=== PATIENT | female | born 1990 | race Caucasian/White ===

== ENCOUNTER 2020-06-23 01:37 | Inpatient (IN) ==
[2020-06-23] MEDS ORDERED: fentaNYL citrate 100 MCG/2 ML VIAL IV STA (01:41)
[2020-06-23] MEDS ORDERED: ONDANSETRON INJ 2 MG/ML 2 ML VIAL IV STA (01:41)
[2020-06-23] MEDS ORDERED: SODIUM CHLORIDE 0.9% 1000ML 1,000 ML IV SCH (01:45)
[2020-06-23] MEDS ORDERED: ONDANSETRON INJ 2 MG/ML 2 ML VIAL ONE (01:58)
[2020-06-23 01:59] LABS: Appearance Urine Clear (Clear); Bilirubin Urine Negative (Negative); Blood Urine Negative (Negative); Color Urine Yellow; Glucose Urine UA Negative (Negative); Ketones Urine Trace (Negative); Leukocyte Esterase Urine Negative (Negative); Nitrite Urine Negative (Negative); Protein Urine Negative (Negative); Urobilinogen Urine Negative (Negative); pH Urine 6.5 (4.5-7.5)
[2020-06-23] MEDS ORDERED: MoRPHine SULFATE 10 MG/ML CARP/VIAL ONE (02:01)
[2020-06-23] MEDS ORDERED: LORazepam 2 MG/4 ML VIAL IV STA (02:11)
[2020-06-23 02:13] LABS: Hematocrit (blood only) 41.8 % (37-47); Hemoglobin 13.8 g/dL (12.0-16.0); Mean Corpuscular Hemoglobin 28.8 pg (25-34); Mean Corpuscular Volume 87.3 fL (80-100); Mean Platelet Volume 11.6 fL (7.4-10.4); Platelet Count 286 K/uL (130-400); RDW Coefficient of Variation 13.7 % (11.5-14.5); RDW Standard Deviation 43.6 fL (36.4-46.3); Red Blood Count 4.79 M/uL (4.2-5.4); White Blood Count 26.69 K/uL (4.8-10.8)
[2020-06-23 02:26] LABS: INR 1.1 (0.9-1.1); Partial Thromboplastin Time 27.6 Seconds (21.0-31.0); Prothrombin Time 11.5 Seconds (9.0-12.0)
[2020-06-23 02:27] LABS: Pregnancy Test, Serum Negative (Negative)
[2020-06-23 02:31] LABS: BUN Creatinine Ratio 11.6 (10-20); Creatinine Clr Calc Pharmacy 114.4 ml/min; Est GFR (African American) 116.4; Est GFR (Non-African American) 100.5; Potassium 3.7 mmol/L (3.5-5.1)
[2020-06-23 02:34] LABS: Albumin Globulin Ratio 1.1 (0.9-2); Bilirubin,Total 0.3 mg/dl (0.2-1); Globulin 3.7 gm/dl (2.5-4.0); Total Protein 7.7 gm/dl (6.4-8.2)
[2020-06-23 02:47] LABS: Basophils # (auto) 0.02 K/uL (0-0.2); Basophils % (auto) 0.1 %; Eosinophils # (auto) 0.02 K/uL (0-0.5); Eosinophils % (auto) 0.1 %; Immature Granulocytes # (auto) 0.12 K/uL (0.00-0.02); Immature Granulocytes % (auto) 0.4 %; Lymphocytes # (auto) 2.07 K/uL (1.2-3.4); Lymphocytes % (auto) 7.8 %; Monocytes # (auto) 1.17 K/uL (0.11-0.59); Monocytes % (auto) 4.4 %; Neutrophils # (auto) 23.29 K/uL (1.4-6.5); Neutrophils % (auto) 87.2 %; RBC Morphology Unremarkable
[2020-06-23] MEDS ORDERED: HYDROmorphone INJ 0.5 MG/0.5 ML SYR IV STA (02:59)
[2020-06-23] MEDS ORDERED: KETOROLAC 30 MG/ML VIAL IV STA (04:28)
[2020-06-23] MEDS ORDERED: GENTAMICIN CONSULT ACTIVE PRN (05:28)
[2020-06-23] MEDS ORDERED: GENTAMICIN SULFATE 40 MG/ML 2 ML VIAL IV ONE (05:28)
[2020-06-23] MEDS ORDERED: CLINDAMYCIN 900 MG in DEXTROSE 5% 50 ML IV ONE (05:28)
[2020-06-23] MEDS ORDERED: GENTAMICIN SULFATE 300 MG in DEXTROSE 5% 100 ML IV STA (05:45)
[2020-06-23] MEDS ORDERED: MAGNESIUM HYDROXIDE SUSP 30 ML UDC PO PRN (06:10)
[2020-06-23] MEDS ORDERED: ACETAMINOPHEN 325 MG TAB PO PRN (06:10)
[2020-06-23] MEDS ORDERED: ALUMINUM/MAGNESIUM/SIMETH (MAALOX MAX) 30 ML UDC PO PRN (06:10)
[2020-06-23] MEDS ORDERED: POLYETHYLENE (MIRALAX) 17 GM PACK PO PRN (06:10)
--- NOTE | 2020-06-23 06:10 | OB/GYN Consultation ---
Date of Consultation June 23, 2020 Assessment & Plan (1) Endometriosis: (2) Pelvic pain: 30-year-old G0 female with acute onset severe pelvic pain radiating to abdominal pain, history of endometriosis, menorrhagia, dysmenorrhea Elevated white blood cell count Physical exam with cervical motion tenderness uterine and adnexal tenderness Ultrasound suggesting hemorrhagic ovarian cyst versus endometrioma and hydrosalpinx Clinical findings and ultrasound suggesting PID Plan to admit, monitor, IV antibiotics and pain management and reevaluate for possible surgical consultation. All questions were answered. (3) Abdominal pain: (4) Cervical motion tenderness: History of Present Illness History of Present Illness Patient is a 30-year-old G0 female who presented to ER with acute pelvic/abdominal pain started around 11 PM. She was at work and sitting and then she stood up and felt sudden sharp lower abdominal/pelvic pain which she stated was around pubic bone. It got worse and spread to whole abdomen and has been constant and severe since then. It is worse when she moves or ambulates and she required IV pain medications with minimal relief in ER and pain is coming back. Patient was feeling well before 11:00. Patient denies fever, chills, nausea or vomiting, chest pain shortness of breath, problems with bowels nor urination. Last bowel movement was yesterday and it was normal. Patient denies vaginal bleeding, discharge or smell. Her [employer] history is significant for history of endometriosis, removed endometrioma from one of the ovaries and was told that it was severe endometriosis. 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 Next period is due next period. She had Lexie IUD which helped with her periods. But removed 2 years ago to attempt for . She has been attempting for with her for the last 2 years with no success. No h/o STD's. No h/o bowel disease. Last meal was at 8 pm last night with no N&V Allergies Allergy/AdvReac Type Severity Reaction Status Date / Time No Known Allergies Allergy Verified 06/23/20 02:23 Home Medications Medication Instructions Recorded Confirmed Type ascorbic acid (vitamin C) [Vitamin 0 mg PO DAILY 06/23/20 06/23/20 History C] cholecalciferol (vitamin D3) 0 mcg PO DAILY 06/23/20 06/23/20 History [Vitamin D3] Patient History Medical History (Updated 06/23/20 @ 06:08 by Antonietta Gomez MD) Abdominal pain Social History Smoking Status: Never smoker Feels Safe at Home: Yes Review of Systems Review of Systems: All systems reviewed & are unremarkable except as noted in HPI & below Physical Exam Constitutional: WD/WN, vitals as above well developed, well nourished and + acute distress (severe apin in lower abdomen/ pelvis, holdiing with her hands) Gastrointestinal (Abdomen): Inspection/Auscultation: abdomen normal to inspection Percussion/Palpation: + abdomen tender and + guarding (lower abdomen) Genitourinary: no vaginal lesions, no adnexal mass normal external appearance Speculum/Bimanual Exam: normal appearance of the vagina, normal ap pearance of the cervix, + cervical tenderness, + cervical motion tenderness (cultures were taken), + uterus tender and + adnexae not mobile Results & Data (MN) Vital Signs (Past 12 Hours) Vital Signs Temp Pulse Resp BP Pulse Ox 06/23/20 04:30 126 H 15 110/82 97 06/23/20 04:25 135 H 18 125/87 98 06/23/20 03:30 115 H 17 112/73 98 06/23/20 03:15 116 H 19 129/76 99 06/23/20 03:00 117 H 17 132/68 98 06/23/20 02:45 112 H 17 124/78 96 06/23/20 02:33 121 H 19 124/78 97 06/23/20 02:32 119 H 18 06/23/20 02:20 123 H 15 95 06/23/20 02:18 120 H 16 142/96 H 96 06/23/20 02:10 123 H 26 H 98 06/23/20 02:00 37.2 C 116 H 29 H 125/102 H 99 06/23/20 01:52 133 H 33 H 125/102 H 92 06/23/20 01:50 127 H 21 97 Laboratory Results Lab Results 06/23/20 06/23/20 06/23/20 Range/Units 01:50 01:50 02:00 WBC (4.8-10.8) K/uL RBC (4.2-5.4) M/uL Hgb (12.0-16.0) g/dL Hct (37-47) % MCV (80-100) fL MCH (25-34) pg MCHC (32-36) g/dL RDW Std Deviation (36.4-46.3) fL RDW Coeff of Sachi (11.5-14.5) % Plt Count (130-400) K/uL MPV (7.4-10.4) fL Immature Gran % (Auto) % Neut % (Auto) % Lymph % (Auto) % [place] % (Auto) % Eos % (Auto) % Baso % (Auto) % Neut # (Auto) (1.4-6.5) K/uL Lymph # (Auto) (1.2-3.4) K/uL [place] # (Auto) (0.11-0.59) K/uL Eos # (Auto) (0-0.5) K/uL Baso # (Auto) (0-0.2) K/uL Immature Gran # (Auto) (0.00-0.02) K/uL RBC Morphology PT (9.0-12.0) Seconds INR (0.9-1.1) APTT (21.0-31.0) Seconds PTT Ratio Sodium (136-145) mmol/L Potassium (3.5-5.1) mmol/L Chloride (98-107) mmol/L Carbon Dioxide (21-32) mmol/L Anion Gap (3-11) BUN (7-18) mg/dl Creatinine (0.6-1.2) mg/dl Est Cr Clr Drug Dosing ml/min Est GFR ( Amer) Est GFR (Non-Af Amer) BUN/Creatinine Ratio (10-20) Glucose (70-99) mg/dl Calcium (8.5-10.1) mg/dl Total Bilirubin (0.2-1) mg/dl AST (15-37) U/L ALT (12-78) U/L Alkaline Phosphatase (45-117) U/L Total Protein (6.4-8.2) gm/dl Albumin (3.4-5.0) gm/dl Globulin (2.5-4.0) gm/dl Albumin/Globulin Ratio (0.9-2) Lipase (73-393) U/L HCG, Qual (Negative) Urine Color Yellow Urine Appearance Clear (Clear) Urine pH 6.5 (4.5-7.5) Ur Specific [place] 1.020 (1.000-1.030) Urine Protein Negative (Negative) Urine Glucose (UA) Negative (Negative) Urine Ketones Trace H (Negative) Urine Blood Negative (Negative) Urine Nitrite Negative (Negative) Urine Bilirubin Negative (Negative) Urine Urobilinogen Negative (Negative) Ur Leukocyte Esterase Negative (Negative) POC Ur Test NEG (NEG) Blood Type A Positive Antibody Screen NEGATIVE 06/23/20 06/23/20 06/23/20 Range/Units 02:00 02:00 02:00 WBC 26.69 H (4.8-10.8) K/uL RBC 4.79 (4.2-5.4) M/uL Hgb 13.8 (12.0-16.0) g/dL Hct 41.8 (37-47) % MCV 87.3 (80-100) fL MCH 28.8 (25-34) pg MCHC 33.0 (32-36) g/dL RDW Std Deviation 43.6 (36.4-46.3) fL RDW Coeff of Sachi 13.7 (11.5-14.5) % Plt Count 286 (130-400) K/uL MPV 11.6 H (7.4-10.4) fL Immature Gran % (Auto) 0.4 % Neut % (Auto) 87.2 % Lymph % (Auto) 7.8 % [place] % (Auto) 4.4 % Eos % (Auto) 0.1 % Baso % (Auto) 0.1 % Neut # (Auto) 23.29 H (1.4-6.5) K/uL Lymph # (Auto) 2.07 (1.2-3.4) K/uL [place] # (Auto) 1.17 H (0.11-0.59) K/uL Eos # (Auto) 0.02 (0-0.5) K/uL Baso # (Auto) 0.02 (0-0.2) K/uL Immature Gran # (Auto) 0.12 H (0.00-0.02) K/uL RBC Morphology Unremarkable PT 11.5 (9.0-12.0) Seconds INR 1.1 (0.9-1.1) APTT 27.6 (21.0-31.0) Seconds PTT Ratio 1.0 Sodium 140 (136-145) mmol/L Potassium 3.7 (3.5-5.1) mmol/L Chloride 111 H (98-107) mmol/L Carbon Dioxide 23 (21-32) mmol/L Anion Gap 6.0 (3-11) BUN 9 (7-18) mg/dl Creatinine 0.79 (0.6-1.2) mg/dl Est Cr Clr Drug Dosing 114.4 ml/min Est GFR ( Amer) 116.4 Est GFR (Non-Af Amer) 100.5 BUN/Creatinine Ratio 11.6 (10-20) Glucose 116 H (70-99) mg/dl Calcium 9.0 (8.5-10.1) mg/dl Total Bilirubin 0.3 (0.2-1) mg/dl AST 9 L (15-37) U/L ALT 16 (12-78) U/L Alkaline Phosphatase 60 (45-117) U/L Total Protein 7.7 (6.4-8.2) gm/dl Albumin 4.0 (3.4-5.0) gm/dl Globulin 3.7 (2.5-4.0) gm/dl Albumin/Globulin Ratio 1.1 (0.9-2) Lipase 87 (73-393) U/L HCG, Qual (Negative) Urine Color Urine Appearance (Clear) Urine pH (4.5-7.5) Ur Specific [place] (1.000-1.030) Urine Protein (Negative) Urine Glucose (UA) (Negative) Urine Ketones (Negative) Urine Blood (Negative) Urine Nitrite (Negative) Urine Bilirubin (Negative) Urine Urobilinogen (Negative) Ur Leukocyte Esterase (Negative) POC Ur Test (NEG) Blood Type Antibody Screen 06/23/20 Range/Units 02:00 WBC (4.8-10.8) K/uL RBC (4.2-5.4) M/uL Hgb (12.0-16.0) g/dL Hct (37-47) % MCV (80-100) fL MCH (25-34) pg MCHC (32-36) g/dL RDW Std Deviation (36.4-46.3) fL RDW Coeff of Sachi (11.5-14.5) % Plt Count (130-400) K/uL MPV (7.4-10.4) fL Immature Gran % (Auto) % Neut % (Auto) % Lymph % (Auto) % [place] % (Auto) % Eos % (Auto) % Baso % (Auto) % Neut # (Auto) (1.4-6.5) K/uL Lymph # (Auto) (1.2-3.4) K/uL [place] # (Auto) (0.11-0.59) K/uL Eos # (Auto) (0-0.5) K/uL Baso # (Auto) (0-0.2) K/uL Immature Gran # (Auto) (0.00-0.02) K/uL RBC Morphology PT (9.0-12.0) Seconds INR (0.9-1.1) APTT (21.0-31.0) Seconds PTT Ratio Sodium (136-145) mmol/L Potassium (3.5-5.1) mmol/L Chloride (98-107) mmol/L Carbon Dioxide (21-32) mmol/L Anion Gap (3-11) BUN (7-18) mg/dl Creatinine (0.6-1.2) mg/dl Est Cr Clr Drug Dosing ml/min Est GFR ( Amer) Est GFR (Non-Af Amer) BUN/Creatinine Ratio (10-20) Glucose (70-99) mg/dl Calcium (8.5-10.1) mg/dl Total Bilirubin (0.2-1) mg/dl AST (15-37) U/L ALT (12-78) U/L Alkaline Phosphatase (45-117) U/L Total Protein (6.4-8.2) gm/dl Albumin (3.4-5.0) gm/dl Globulin (2.5-4.0) gm/dl Albumin/Globulin Ratio (0.9-2) Lipase (73-393) U/L HCG, Qual Negative (Negative) Urine Color Urine Appearance (Clear) Urine pH (4.5-7.5) Ur Specific [place] (1.000-1.030) Urine Protein (Negative) Urine Glucose (UA) (Negative) Urine Ketones (Negative) Urine Blood (Negative) Urine Nitrite (Negative) Urine Bilirubin (Negative) Urine Urobilinogen (Negative) Ur Leukocyte Esterase (Negative) POC Ur Test (NEG) Blood Type Antibody Screen
[2020-06-23] MEDS: HYDROmorphone INJ 0.5 MG/0.5 ML SYR IV PRN ×8 (06:12→23:13)
[2020-06-23] MEDS: AMPICILLIN 2,000 MG in SODIUM CHLOR 0.9% AD-VAN 100 ML IV SCH ×4 (06:33→23:17)
[2020-06-23] MEDS ORDERED: HYDROmorphone INJ 0.5 MG/0.5 ML SYR ONE (07:21)
--- NOTE | 2020-06-23 07:28 | CT Scan Report ---
CT SCAN OF THE ABDOMEN AND PELVIS WITHOUT CONTRAST CLINICAL HISTORY: Generalized abdominal pain COMPARISON STUDY: No previous studies for comparison. TECHNIQUE: CT scan of the abdomen and pelvis was performed from the lung bases to the proximal femurs . Images are reviewed in the axial, sagittal, and coronal planes. IV contrast was not administered fo r this examination. A dose lowering technique was utilized adhering to the principles of ALARA. CT DOSE: 1533.11 mGy.cm FINDINGS: Lower chest: The heart is normal in size and configuration, without pericardial effusion. The lung ba ses and pleural spaces are clear. Liver: The unenhanced liver is normal in size, contour, and attenuation. There is no intrahepatic talya iary ductal dilatation. Gallbladder: Unremarkable. Spleen: Normal in size and attenuation. Pancreas: Unremarkable. Adrenal glands: Unremarkable. Kidneys: The unenhanced kidneys are normal in size without hydronephrosis. There is no contour deform ing renal mass lesion. No renal calculi are identified. Bowel: There are no transition zones indicate bowel obstruction. There is no evidence of acute divert iculitis. The appendix is not visualized with certainty. Peritoneum: There is trace pelvic fluid. There is no free intraperitoneal air. There is tiny fat-cont aining umbilical hernia Vasculature: The abdominal aorta is normal in course and caliber. Adenopathy: None. Pelvic viscera: There is trace fluid within the adnexa. There is soft tissue prominence of the adnexa l regions. The adnexal structures are difficult to assess without intravenous contrast. Periovarian h emorrhage cannot be excluded. Skeletal structures: No destructive osseous lesions are seen. IMPRESSION: 1. No evidence of bowel obstruction. No evidence of free air 2. No evidence of acute diverticulitis. Nonvisualization of the appendix. 3. Small amount of fluid within the adnexal regions with slight ill-definition of the adnexal structu res. 4. Periovarian hemorrhage cannot be excluded. ACT 112: Negative or not required by law. Electronically signed by: Yon Abdi M.D. 06/23/2020 7:26 AM
--- NOTE | 2020-06-23 07:36 | Emergency Department Note ---
History of Present Illness General Chief complaint: Abdominal Pain Stated complaint: ABDOMINAL PAIN Time Seen by Provider: 06/23/20 01:39 History of Present Illness Maximum Pain Intensity: 10 This is a 30-year-old female presenting to the emergency department for evaluation of acute onset abdominal pain for the past 30 minutes. The patient is G0 and . The patient was at work at onset of symptoms, when she felt a very sharp stabbing pain that worsened and escalated. The patient presents via EMS and has had 10 mg IV morphine and 4 mg IV Zofran prehospital. She states this has not improved her symptoms. She does have a past history of hemorrhagic right ovarian cyst that was surgically removed, but denies other abdominal surgeries. She is in a monogamous relationship with her and they are trying to become , although she did have a menses this month. She has not had fevers, chills, chest pain, chest tightness, shortness of breath, or difficulty using the bathroom. She is without reports of vaginal bleeding or discharge. She does not report a past history of STDs and last ate around 8 PM yesterday. She rates her discomfort a 10/10. Home Medications Medication Instructions Recorded Confirmed Type ascorbic acid (vitamin C) [Vitamin 0 mg PO DAILY 06/23/20 06/23/20 History C] cholecalciferol (vitamin D3) 0 mcg PO DAILY 06/23/20 06/23/20 History [Vitamin D3] ibuprofen 600 mg PO Q4H #30 tab 06/26/20 Rx oxycodone-acetaminophen [Percocet] 1 - 2 tab PO Q4H #30 tab 06/26/20 Rx Allergies Allergy/AdvReac Type Severity Reaction Status Date / Time No Known Allergies Allergy Verified 06/23/20 02:23 Past Med/Surg History Medical History (Updated 06/26/20 @ 13:53 by Patrice Phillips MD) Abdominal pain Endometriosis Surgical History (Updated 06/23/20 @ 07:38 by Santiago Gonzalez PA-C) H/O removal of cyst Social History Smoking Status: Never smoker Preferred Language: Romanian Communication Ability: Effective Chiropractor Assistant Required: No Beliefs That Will Affect Care: None Current Living Situation: Spouse Other Information That Helps Us Care for You: No Feels Safe at Home: Yes Safety Concerns: Feels Safe At This Time Assistive Devices: None Review of Systems A total of 10 systems reviewed and were otherwise negative Physical Exam Vital Signs Vital Signs - 24 hr 06/23/20 01:50 06/23/20 01:52 06/23/20 02:00 Temperature 37.2 C Temperature Source Oral Pulse Rate 127 H 133 H 116 H Pulse Rate from SpO2 Sensor 132 H 120 H Pulse Rhythm Regular Regular Pulse Strength Normal Respiratory Rate 21 33 H 29 H Respiratory Effort / Characteristics Non-Labored Spontaneous Respiratory Depth Normal Blood Pressure 125/102 H 125/102 H Blood Pressure Mean 109 109 Pulse Oximetry 97 92 99 Oxygen Delivery Method Room Air Room Air Sepsis Recent Fever Within 48 Hours No Sepsis New/Unexplained Change in Mental Status No Sepsis Action Taken by Nursing Adv Provider Notified 06/23/20 02:10 06/23/20 02:18 06/23/20 02:20 Temperature Temperature Source Pulse Rate 123 H 120 H 123 H Pulse Rate from SpO2 Sensor 127 H 121 H 122 H Pulse Rhythm Pulse Strength Respiratory Rate 26 H 16 15 Respiratory Effort / Characteristics Respiratory Depth Blood Pressure 142/96 H Blood Pressure Mean 111 Pulse Oximetry 98 96 95 Oxygen Delivery Method Sepsis Recent Fever Within 48 Hours Sepsis New/Unexplained Change in Mental Status Sepsis Action Taken by Nursing 06/23/20 02:32 06/23/20 02:33 06/23/20 02:45 Temperature Temperature Source Pulse Rate 119 H 121 H 112 H Pulse Rate from SpO2 Sensor 120 H 110 H Pulse Rhythm Pulse Strength Respiratory Rate 18 19 17 Respiratory Effort / Characteristics Respiratory Depth Blood Pressure 124/78 124/78 Blood Pressure Mean 93 93 Pulse Oximetry 97 96 Oxygen Delivery Method Room Air Sepsis Recent Fever Within 48 Hours Sepsis New/Unexplained Change in Mental Status Sepsis Action Taken by Nursing 06/23/20 03:00 06/23/20 03:15 06/23/20 03:30 Temperature Temperature Source Pulse Rate 117 H 116 H 115 H Pulse Rate from SpO2 Sensor 117 H 117 H 115 H Pulse Rhythm Pulse Strength Respiratory Rate 17 19 17 Respiratory Effort / Characteristics Respiratory Depth Blood Pressure 132/68 129/76 112/73 Blood Pressure Mean 89 93 86 Pulse Oximetry 98 99 98 Oxygen Delivery Method Room Air Room Air Room Air Sepsis Recent Fever Within 48 Hours Sepsis New/Unexplained Change in Mental Status Sepsis Action Taken by Nursing 06/23/20 04:25 06/23/20 04:30 06/23/20 04:45 Temperature Temperature Source Pulse Rate 135 H 126 H 134 H Pulse Rate from SpO2 Sensor 126 H 134 H Pulse Rhythm Pulse Strength Respiratory Rate 18 15 17 Respiratory Effort / Characteristics Respiratory Depth Blood Pressure 125/87 110/82 112/80 Blood Pressure Mean 99 91 90 Pulse Oximetry 98 97 96 Oxygen Delivery Method Room Air Room Air Room Air Sepsis Recent Fever Within 48 Hours Sepsis New/Unexplained Change in Mental Status Sepsis Action Taken by Nursing 06/23/20 05:00 06/23/20 05:16 06/23/20 05:30 Temperature Temperature Source Pulse Rate 120 H 127 H 114 H Pulse Rate from SpO2 Sensor 118 H 127 H 113 H Pulse Rhythm Pulse Strength Respiratory Rate 21 20 20 Respiratory Effort / Characteristics Respiratory Depth Blood Pressure 102/88 96/72 L 116/81 Blood Pressure Mean 92 80 92 Pulse Oximetry 96 97 96 Oxygen Delivery Method Room Air Room Air Room Air Sepsis Recent Fever Within 48 Hours Sepsis New/Unexplained Change in Mental Status Sepsis Action Taken by Nursing 06/23/20 05:50 06/23/20 05:58 06/23/20 06:00 Temperature Temperature Source Pulse Rate 128 H 135 H 128 H Pulse Rate from SpO2 Sensor 129 H 138 H 129 H Pulse Rhythm Pulse Strength Respiratory Rate 17 16 18 Respiratory Effort / Characteristics Respiratory Depth Blood Pressure 121/88 121/84 Blood Pressure Mean 99 96 Pulse Oximetry 97 97 94 Oxygen Delivery Method Room Air Room Air Room Air Sepsis Recent Fever Within 48 Hours Sepsis New/Unexplained Change in Mental Status Sepsis Action Taken by Nursing 06/23/20 06:15 06/23/20 06:20 Temperature Temperature Source Pulse Rate 123 H 122 H Pulse Rate from SpO2 Sensor 123 H 121 H Pulse Rhythm Pulse Strength Respiratory Rate 15 21 Respiratory Effort / Characteristics Respiratory Depth Blood Pressure 113/68 Blood Pressure Mean 83 Pulse Oximetry 93 95 Oxygen Delivery Method Room Air Sepsis Recent Fever Within 48 Hours Sepsis New/Unexplained Change in Mental Status Sepsis Action Taken by Nursing VITALS: Vitals are noted on the nurse's note and reviewed by myself. Vital signs stable. GENERAL: Well-developed, well-nourished, white female who appears in moderate to severe discomfort. She is laying on her left side in the ER bed and appears quite uncomfortable. She is answering questions appropriately. HEAD: Normocephalic atraumatic. NECK: Supple without nuchal rigidity. No lymphadenopathy. No thyromegaly. Ce rvical spine is nontender. HEART: Regular rate and rhythm without murmurs gallops or rubs. LUNGS: Clear to auscultation bilaterally without wheezes, rales or rhonchi. No retractions or accessory muscle use. ABDOMEN: Positive normal bowel sounds x 4. Diffuse tenderness throughout on light palpation. Exam is somewhat limited as patient is quite uncomfortable. MUSCULOSKELETAL: No muscle atrophy, erythema, or edema noted. Full range of motion in all extremities. NEURO: Patient was alert and oriented to person place and time. CN II through XII grossly intact. Course Administered Medications Discontinued Medications Acetaminophen (Acetaminophen 325 Mg Tab) 650 mg PO Q4H PRN PRN Reason: Pain or Fever Stop: 07/23/20 06:09 Last Admin: 06/25/20 18:10 Dose: 650 mg Documented by: [id number] Fentanyl Citrate (Fentanyl Citrate 100 Mcg/2 Ml Vial) 100 mcg IV NOW STA Stop: 06/23/20 01:42 Last Admin: 06/23/20 01:59 Dose: 100 mcg Documented by: [id number] Hydromorphone HCl (Hydromorphone Inj 0.5 Mg/0.5 Ml Syr) 0.5 mg IV NOW STA Stop: 06/23/20 03:00 Last Admin: 06/23/20 03:19 Dose: 0.5 mg Documented by: [id number] Hydromorphone HCl (Hydromorphone Inj 0.5 Mg/0.5 Ml Syr) 0.5 mg IV Q1H PRN PRN Reason: Pain Stop: 07/07/20 05:59 Last Admin: 06/26/20 03:57 Dose: 0.5 mg Documented by: [id number] Admin: 06/26/20 01:44 Dose: 0.5 mg Documented by: [id number] Admin: 06/25/20 22:48 Dose: 0.5 mg Documented by: [id number] Admin: 06/24/20 11:58 Dose: 0.5 mg Documented by: [id number] Admin: 06/24/20 10:14 Dose: 0.5 mg Documented by: [id number] Admin: 06/24/20 07:55 Dose: 0.5 mg Documented by: [id number] Admin: 06/24/20 06:23 Dose: 0.5 mg Documented by: [id number] Admin: 06/24/20 02:36 Dose: 0.5 mg Documented by: [id number] Admin: 06/23/20 23:13 Dose: 0.5 mg Documented by: [id number] Admin: 06/23/20 21:43 Dose: 0.5 mg Documented by: [id number] Admin: 06/23/20 18:11 Dose: 0.5 mg Documented by: [id number] Admin: 06/23/20 15:57 Dose: 0.5 mg Documented by: [id number] Admin: 06/23/20 12:40 Dose: 0.5 mg Documented by: [id number] Admin: 06/23/20 09:27 Dose: 0.5 mg Documented by: [id number] Admin: 06/23/20 07:23 Dose: 0.5 mg Documented by: [id number] Admin: 06/23/20 06:12 Dose: 0.5 mg Documented by: [id number] Hydromorphone HCl (Hydromorphone Inj 0.5 Mg/0.5 Ml Syr) Confirm Administered Dose 0.5 mg .ROUTE .STK-MED ONE Stop: 06/23/20 07:22 Last Admin: 06/23/20 08:26 Dose: Not Given Documented by: [id number] Sodium Chloride (Nss 1000ml) 1,000 mls @ 999 mls/hr IV .Q1H1M [facility] Stop: 06/23/20 02:45 Last Infusion: 06/23/20 03:00 Dose: 0 mls/hr Documented by: [id number] Admin: 06/23/20 01:59 Dose: 999 mls/hr Documented by: [id number] Lorazepam (Ativan) 2 mg in 4 mls @ 4 mls/min IV NOW STA Stop: 06/23/20 02:12 Last Admin: 06/23/20 02:15 Dose: 4 mls/min Documented by: [id number] Clindamycin Phosphate 900 mg/ (Dextrose) 56 mls @ 100 mls/hr IV ONE ONE Stop: 06/23/20 06:01 Last Infusion: 06/23/20 07:04 Dose: 0 mls/hr Documented by: [id number] Admin: 06/23/20 06:12 Dose: 100 mls/hr Documented by: [id number] Ampicillin Sodium 2,000 mg/ (Sodium Chloride) 100 mls @ 200 mls/hr IV Q6H [facility] Stop: 07/03/20 05:29 Last Infusion: 06/26/20 12:09 Dose: 0 mls/hr Documented by: [id number] Admin: 06/26/20 11:11 Dose: 200 mls/hr Documented by: [id number] Infusion: 06/26/20 05:32 Dose: 0 mls/hr Documented by: [id number] Admin: 06/26/20 05:02 Dose: 200 mls/hr Documented by: [id number] Infusion: 06/26/20 00:02 Dose: 0 mls/hr Documented by: [id number] Admin: 06/25/20 23:30 Dose: 200 mls/hr Documented by: [id number] Infusion: 06/25/20 17:30 Dose: 0 mls/hr Documented by: [id number] Admin: 06/25/20 17:00 Dose: 200 mls/hr Documented by: [id number] Infusion: 06/25/20 11:50 Dose: 0 mls/hr Documented by: [id number] Admin: 06/25/20 11:18 Dose: 200 mls/hr Documented by: [id number] Infusion: 06/25/20 05:56 Dose: 0 mls/hr Documented by: [id number] Admin: 06/25/20 05:25 Dose: 200 mls/hr Documented by: [id number] Infusion: 06/25/20 00:03 Dose: 0 mls/hr Documented by: [id number] Admin: 06/24/20 23:30 Dose: 200 mls/hr Documented by: [id number] Infusion: 06/24/20 18:10 Dose: 0 mls/hr Documented by: [id number] Admin: 06/24/20 17:36 Dose: 200 mls/hr Documented by: [id number] Infusion: 06/24/20 11:30 Dose: 0 mls/hr Documented by: [id number] Admin: 06/24/20 10:57 Dose: 200 mls/hr Documented by: [id number] Infusion: 06/24/20 05:54 Dose: 0 mls/hr Documented by: [id number] Admin: 06/24/20 05:24 Dose: 200 mls/hr Documented by: [id number] Infusion: 06/23/20 23:51 Dose: 0 mls/hr Documented by: [id number] Admin: 06/23/20 23:17 Dose: 200 mls/hr Documented by: [id number] Infusion: 06/23/20 18:15 Dose: 0 mls/hr Documented by: [id number] Admin: 06/23/20 17:35 Dose: 200 mls/hr Documented by: [id number] Infusion: 06/23/20 11:50 Dose: 0 mls/hr Documented by: [id number] Admin: 06/23/20 11:20 Dose: 200 mls/hr Documented by: [id number] Infusion: 06/23/20 07:22 Dose: 0 mls/hr Documented by: [id number] Admin: 06/23/20 06:33 Dose: 200 mls/hr Documented by: [id number] Gentamicin Sulfate 300 mg/ (Dextrose) 107.5 mls @ 100 mls/hr IV NOW STA Stop: 06/23/20 06:49 Last Infusion: 06/23/20 08:26 Dose: 0 mls/hr Documented by: [id number] Admin: 06/23/20 07:25 Dose: 100 mls/hr Documented by: [id number] Lactated Ringer's (Lr) 1,000 mls @ 125 mls/hr IV .Q8H [facility] Stop: 07/23/20 09:14 Last Infusion: 06/26/20 11:11 Dose: 0 mls/hr Documented by: [id number] Admin: 06/26/20 10:17 Dose: 125 mls/hr Documented by: [id number] Infusion: 06/26/20 09:15 Dose: 125 mls/hr Documented by: [id number] Infusion: 06/26/20 08:03 Dose: 0 mls/hr Documented by: [id number] Infusion: 06/26/20 05:50 Dose: 125 mls/hr Documented by: [id number] Infusion: 06/25/20 22:41 Dose: 125 mls/hr Documented by: [id number] Infusion: 06/25/20 21:48 Dose: 0 mls/hr Documented by: [id number] Admin: 06/25/20 21:45 Dose: 125 mls/hr Documented by: [id number] Infusion: 06/25/20 20:54 Dose: 125 mls/hr Documented by: [id number] Infusion: 06/25/20 17:30 Dose: 125 mls/hr Documented by: [id number] Infusion: 06/25/20 17:00 Dose: 0 mls/hr Documented by: [id number] Infusion: 06/25/20 14:33 Dose: 125 mls/hr Documented by: [id number] Infusion: 06/25/20 14:25 Dose: 125 mls/hr Documented by: [id number] Infusion: 06/25/20 13:47 Dose: 0 mls/hr Documented by: [id number] Infusion: 06/25/20 11:50 Dose: 125 mls/hr Documented by: [id number] Infusion: 06/25/20 11:18 Dose: 0 mls/hr Documented by: [id number] Admin: 06/25/20 11:14 Dose: 125 mls/hr Documented by: [id number] Infusion: 06/25/20 09:28 Dose: 125 mls/hr Documented by: [id number] Infusion: 06/25/20 09:05 Dose: 125 mls/hr Documented by: [id number] Infusion: 06/25/20 07:50 Dose: 0 mls/hr Documented by: [id number] Infusion: 06/25/20 06:40 Dose: 125 mls/hr Documented by: [id number] Infusion: 06/25/20 05:25 Dose: 0 mls/hr Documented by: [id number] Infusion: 06/25/20 00:03 Dose: 125 mls/hr Documented by: [id number] Infusion: 06/24/20 23:33 Dose: 0 mls/hr Documented by: [id number] Admin: 06/24/20 22:27 Dose: 125 mls/hr Documented by: [id number] Infusion: 06/24/20 22:27 Dose: 125 mls/hr Documented by: [id number] Infusion: 06/24/20 18:10 Dose: 125 mls/hr Documented by: [id number] Infusion: 06/24/20 17:37 Dose: 0 mls/hr Documented by: [id number] Infusion: 06/24/20 14:06 Dose: 125 mls/hr Documented by: [id number] Admin: 06/24/20 13:59 Dose: 125 mls/hr Documented by: [id number] Infusion: 06/24/20 13:16 Dose: 0 mls/hr Documented by: [id number] Infusion: 06/24/20 11:30 Dose: 125 mls/hr Documented by: [id number] Infusion: 06/24/20 10:58 Dose: 0 mls/hr Documented by: [id number] Infusion: 06/24/20 09:05 Dose: 125 mls/hr Documented by: [id number] Infusion: 06/24/20 07:56 Dose: 0 mls/hr Documented by: [id number] Admin: 06/24/20 02:52 Dose: 125 mls/hr Documented by: [id number] Infusion: 06/24/20 02:52 Dose: 125 mls/hr Documented by: [id number] Infusion: 06/23/20 22:22 Dose: 125 mls/hr Documented by: [id number] Infusion: 06/23/20 21:39 Dose: 0 mls/hr Documented by: [id number] Infusion: 06/23/20 18:15 Dose: 125 mls/hr Documented by: [id number] Infusion: 06/23/20 16:50 Dose: 0 mls/hr Documented by: [id number] Admin: 06/23/20 16:49 Dose: 125 mls/hr Documented by: [id number] Infusion: 06/23/20 16:49 Dose: 125 mls/hr Documented by: [id number] Infusion: 06/23/20 15:29 Dose: 125 mls/hr Documented by: [id number] Infusion: 06/23/20 14:42 Dose: 125 mls/hr Documented by: [id number] Admin: 06/23/20 09:00 Dose: 125 mls/hr Documented by: [id number] Clindamycin Phosphate 900 mg/ (Dextrose) 56 mls @ 100 mls/hr IV Q8H [facility] Stop: 07/03/20 13:59 Last Infusion: 06/26/20 06:19 Dose: 0 mls/hr Documented by: [id number] Admin: 06/26/20 05:45 Dose: 100 mls/hr Documented by: [id number] Infusion: 06/25/20 22:41 Dose: 0 mls/hr Documented by: [id number] Admin: 06/25/20 21:47 Dose: 100 mls/hr Documented by: [id number] Infusion: 06/25/20 14:25 Dose: 0 mls/hr Documented by: [id number] Admin: 06/25/20 13:47 Dose: 100 mls/hr Documented by: [id number] Infusion: 06/25/20 06:40 Dose: 0 mls/hr Documented by: [id number] Admin: 06/25/20 06:05 Dose: 100 mls/hr Documented by: [id number] Infusion: 06/24/20 23:04 Dose: 0 mls/hr Documented by: [id number] Admin: 06/24/20 22:27 Dose: 100 mls/hr Documented by: [id number] Infusion: 06/24/20 14:00 Dose: 0 mls/hr Documented by: [id number] Admin: 06/24/20 13:16 Dose: 100 mls/hr Documented by: [id number] Infusion: 06/24/20 06:46 Dose: 0 mls/hr Documented by: [id number] Admin: 06/24/20 06:12 Dose: 100 mls/hr Documented by: [id number] Infusion: 06/23/20 22:22 Dose: 0 mls/hr Documented by: [id number] Admin: 06/23/20 21:39 Dose: 100 mls/hr Documented by: [id number] Infusion: 06/23/20 15:29 Dose: 0 mls/hr Documented by: [id number] Admin: 06/23/20 14:15 Dose: 100 mls/hr Documented by: [id number] Acetaminophen (Ofirmev) 1,000 mg in 100 mls @ 400 mls/hr IV Q8H PRN PRN Reason: pain Stop: 06/26/20 16:25 Last Infusion: 06/25/20 05:50 Dose: 0 mls/hr Documented by: [id number] Admin: 06/25/20 05:32 Dose: 400 mls/hr Documented by: [id number] Infusion: 06/23/20 17:35 Dose: 0 mls/hr Documented by: [id number] Admin: 06/23/20 16:49 Dose: 400 mls/hr Documented by: [id number] Gentamicin Sulfate 350 mg/ (Dextrose) 108.75 mls @ 100 mls/hr IV Q24H [facility] Stop: 07/04/20 07:29 Last Infusion: 06/26/20 09:15 Dose: 0 mls/hr Documented by: [id number] Admin: 06/26/20 08:02 Dose: 100 mls/hr Documented by: [id number] Infusion: 06/25/20 09:00 Dose: 0 mls/hr Documented by: [id number] Admin: 06/25/20 07:50 Dose: 100 mls/hr Documented by: [id number] Infusion: 06/24/20 09:05 Dose: 0 mls/hr Documented by: [id number] Admin: 06/24/20 07:55 Dose: 100 mls/hr Documented by: [id number] Ibuprofen (Ibuprofen 600 Mg Tab) 600 mg PO Q6H PRN PRN Reason: Pain or Fever Stop: 07/24/20 11:41 Last Admin: 06/26/20 13:11 Dose: 600 mg Documented by: [id number] Admin: 06/26/20 08:41 Dose: 600 mg Documented by: [id number] Admin: 06/25/20 13:53 Dose: 600 mg Documented by: [id number] Admin: 06/25/20 00:58 Dose: 600 mg Documented by: [id number] Admin: 06/24/20 21:41 Dose: 600 mg Documented by: [id number] Admin: 06/24/20 17:36 Dose: 600 mg Documented by: [id number] Ketorolac Tromethamine (Ketorolac 30 Mg/Ml Vial) 30 mg IV NOW STA Stop: 06/23/20 04:29 Last Admin: 06/23/20 04:34 Dose: 30 mg Documented by: [id number] Ketorolac Tromethamine (Ketorolac Tromethamine 15 Mg/Ml Vial) 15 mg IV Q6H PRN PRN Reason: Pain Stop: 06/28/20 06:09 Last Admin: 06/25/20 20:18 Dose: 15 mg Documented by: [id number] Admin: 06/25/20 07:49 Dose: 15 mg Documented by: [id number] Admin: 06/24/20 11:57 Dose: 15 mg Documented by: [id number] Admin: 06/24/20 02:01 Dose: 15 mg Documented by: [id number] Admin: 06/23/20 18:11 Dose: 15 mg Documented by: [id number] Admin: 06/23/20 12:18 Dose: 15 mg Documented by: [id number] Magnesium Hydroxide (Magnesium Hydroxide Susp 30 Ml Udc) 30 ml PO Q6H PRN PRN Reason: Constipation Stop: 07/23/20 06:09 Last Admin: 06/24/20 18:05 Dose: 30 ml Documented by: [id number] Morphine Sulfate (Morphine Sulfate 4 Mg/Ml 1 Ml Carp\Vial) 4 mg IV Q3H PRN PRN Reason: Pain Stop: 07/07/20 06:09 Last Admin: 06/24/20 04:22 Dose: 4 mg Documented by: [id number] Admin: 06/24/20 01:03 Dose: 4 mg Documented by: [id number] Admin: 06/23/20 20:39 Dose: 4 mg Documented by: [id number] Admin: 06/23/20 15:26 Dose: 4 mg Documented by: [id number] Admin: 06/23/20 12:18 Dose: 4 mg Documented by: [id number] Morphine Sulfate (Morphine Sulfate 10 Mg/Ml Carp/Vial) Confirm Administered Dose 10 mg .ROUTE .STK-MED ONE Stop: 06/23/20 02:02 Last Admin: 06/23/20 07:17 Dose: Not Given Documented by: [id number] Ondansetron HCl (Ondansetron Inj 2 Mg/Ml 2 Ml Vial) 4 mg IV NOW STA Stop: 06/23/20 01:42 Last Admin: 06/23/20 01:59 Dose: 4 mg Documented by: [id number] Ondansetron HCl (Ondansetron Inj 2 Mg/Ml 2 Ml Vial) 4 mg IV Q6H PRN PRN Reason: Nausea And Vomiting Stop: 07/23/20 06:09 Last Admin: 06/26/20 07:39 Dose: 4 mg Documented by: [id number] Admin: 06/25/20 11:14 Dose: 4 mg Documented by: [id number] Admin: 06/25/20 04:04 Dose: 4 mg Documented by: [id number] Admin: 06/24/20 20:44 Dose: 4 mg Documented by: [id number] Admin: 06/24/20 07:55 Dose: 4 mg Documented by: [id number] Admin: 06/23/20 19:18 Dose: 4 mg Documented by: [id number] Ondansetron HCl (Ondansetron Inj 2 Mg/Ml 2 Ml Vial) Confirm Administered Dose 4 mg .ROUTE .STK-MED ONE Stop: 06/23/20 01:59 Last Admin: 06/23/20 07:17 Dose: Not Given Documented by: [id number] Ondansetron HCl (Ondansetron 4 Mg Od Tab) 4 mg PO Q4H PRN PRN Reason: Nausea Stop: 07/25/20 11:23 Last Admin: 06/25/20 18:11 Dose: 4 mg Documented by: [id number] Oxycodone/Acetaminophen (Oxycodone/Acetaminophen 5mg/325mg Tab) 1 tab PO Q4H PRN PRN Reason: Pain Stop: 07/08/20 11:40 Last Admin: 06/26/20 08:40 Dose: 1 tab Documented by: [id number] Admin: 06/26/20 05:33 Dose: 1 tab Documented by: [id number] Admin: 06/25/20 22:34 Dose: 1 tab Documented by: [id number] Admin: 06/25/20 11:14 Dose: 1 tab Documented by: [id number] Admin: 06/24/20 22:26 Dose: 1 tab Documented by: [id number] Admin: 06/24/20 18:05 Dose: 1 tab Documented by: [id number] Admin: 06/24/20 13:59 Dose: 1 tab Documented by: [id number] Oxycodone/Acetaminophen (Oxycodone/Acetaminophen 5mg/325mg Tab) 1 tab PO ONE ONE Stop: 06/26/20 09:01 Last Admin: 06/26/20 09:13 Dose: Not Given Documented by: [id number] Oxycodone/Acetaminophen (Oxycodone/Acetaminophen 5mg/325mg Tab) 1 - 2 tab PO Q4H PRN PRN Reason: Pain Stop: 07/10/20 08:49 Last Admin: 06/26/20 13:10 Dose: 1 tab Documented by: [id number] Polyethylene Glycol (Polyethylene (Miralax) 17 Gm Pack) 17 gm PO DAILY PRN PRN Reason: Constipation Stop: 07/23/20 06:09 Last Admin: 06/24/20 13:59 Dose: 17 gm Documented by: [id number] Medical Decision Making Differential Diagnosis Differential diagnosis: Etiologies such as ectopic , tubo-ovarian abscess, STD, biliary colic, cholecystitis, hepatitis, pancreatitis, cardiac disease, pancreatitis, gastrit is, peptic ulcer disease, appendicitis, cystitis, diverticulitis, mesenteric ischemia, inflammatory bowel disease, ileus, bowel obstruction, testicular/adnexal torsion, aortic pathology, shingles, as well as others were considered Laboratory Data Result diagrams: 06/26/20 06:16 06/25/20 06:07 Lab Results 06/23/20 06/23/20 06/23/20 Range/Units 01:50 01:50 02:00 WBC (4.8-10.8) K/uL RBC (4.2-5.4) M/uL Hgb (12.0-16.0) g/dL Hct (37-47) % MCV (80-100) fL MCH (25-34) pg MCHC (32-36) g/dL RDW Std Deviation (36.4-46.3) fL RDW Coeff of Sachi (11.5-14.5) % Plt Count (130-400) K/uL MPV (7.4-10.4) fL Immature Gran % (Auto) % Neut % (Auto) % Lymph % (Auto) % [place] % (Auto) % Eos % (Auto) % Baso % (Auto) % Neut # (Auto) (1.4-6.5) K/uL Lymph # (Auto) (1.2-3.4) K/uL [place] # (Auto) (0.11-0.59) K/uL Eos # (Auto) (0-0.5) K/uL Baso # (Auto) (0-0.2) K/uL Immature Gran # (Auto) (0.00-0.02) K/uL RBC Morphology PT (9.0-12.0) Seconds INR (0.9-1.1) APTT (21.0-31.0) Seconds PTT Ratio Sodium (136-145) mmol/L Potassium (3.5-5.1) mmol/L Chloride (98-107) mmol/L Carbon Dioxide (21-32) mmol/L Anion Gap (3-11) BUN (7-18) mg/dl Creatinine (0.6-1.2) mg/dl Est Cr Clr Drug Dosing ml/min Est GFR ( Amer) Est GFR (Non-Af Amer) BUN/Creatinine Ratio (10-20) Glucose (70-99) mg/dl Lactate (0.4-2.0) mmol/L Calcium (8.5-10.1) mg/dl Total Bilirubin (0.2-1) mg/dl AST (15-37) U/L ALT (12-78) U/L Alkaline Phosphatase (45-117) U/L Total Protein (6.4-8.2) gm/dl Albumin (3.4-5.0) gm/dl Globulin (2.5-4.0) gm/dl Albumin/Globulin Ratio (0.9-2) Lipase (73-393) U/L HCG, Qual (Negative) Urine Color Yellow Urine Appearance Clear (Clear) Urine pH 6.5 (4.5-7.5) Ur Specific [place] 1.020 (1.000-1.030) Urine Protein Negative (Negative) Urine Glucose (UA) Negative (Negative) Urine Ketones Trace H (Negative) Urine Blood Negative (Negative) Urine Nitrite Negative (Negative) Urine Bilirubin Negative (Negative) Urine Urobilinogen Negative (Negative) Ur Leukocyte Esterase Negative (Negative) POC Ur Test NEG (NEG) C.trachomatis RNA (NOT DETECTED) N.gonorrhoeae RNA (NOT DETECTED) T.vaginalis (Amp Det) (NOT DETECTED) Reference Lab Comment Blood Type A Positive Antibody Screen NEGATIVE 06/23/20 06/23/20 06/23/20 Range/Units 02:00 02:00 02:00 WBC 26.69 H (4.8-10.8) K/uL RBC 4.79 (4.2-5.4) M/uL Hgb 13.8 (12.0-16.0) g/dL Hct 41.8 (37-47) % MCV 87.3 (80-100) fL MCH 28.8 (25-34) pg MCHC 33.0 (32-36) g/dL RDW Std Deviation 43.6 (36.4-46.3) fL RDW Coeff of [place] 13.7 (11.5-14.5) % Plt Count 286 (130-400) K/uL MPV 11.6 H (7.4-10.4) fL Immature Gran % (Auto) 0.4 % Neut % (Auto) 87.2 % Lymph % (Auto) 7.8 % [place] % (Auto) 4.4 % Eos % (Auto) 0.1 % Baso % (Auto) 0.1 % Neut # (Auto) 23.29 H (1.4-6.5) K/uL Lymph # (Auto) 2.07 (1.2-3.4) K/uL [place] # (Auto) 1.17 H (0.11-0.59) K/uL Eos # (Auto) 0.02 (0-0.5) K/uL Baso # (Auto) 0.02 (0-0.2) K/uL Immature Gran # (Auto) 0.12 H (0.00-0.02) K/uL RBC Morphology Unremarkable PT 11.5 (9.0-12.0) Seconds INR 1.1 (0.9-1.1) APTT 27.6 (21.0-31.0) Seconds PTT Ratio 1.0 Sodium 140 (136-145) mmol/L Potassium 3.7 (3.5-5.1) mmol/L Chloride 111 H (98-107) mmol/L Carbon Dioxide 23 (21-32) mmol/L Anion Gap 6.0 (3-11) BUN 9 (7-18) mg/dl Creatinine 0.79 (0.6-1.2) mg/dl Est Cr Clr Drug Dosing 114.4 ml/min Est GFR ( Amer) 116.4 Est GFR (Non-Af Amer) 100.5 BUN/Creatinine Ratio 11.6 (10-20) Glucose 116 H (70-99) mg/dl Lactate (0.4-2.0) mmol/L Calcium 9.0 (8.5-10.1) mg/dl Total Bilirubin 0.3 (0.2-1) mg/dl AST 9 L (15-37) U/L ALT 16 (12-78) U/L Alkaline Phosphatase 60 (45-117) U/L Total Protein 7.7 (6.4-8.2) gm/dl Albumin 4.0 (3.4-5.0) gm/dl Globulin 3.7 (2.5-4.0) gm/dl Albumin/Globulin Ratio 1.1 (0.9-2) Lipase 87 (73-393) U/L HCG, Qual (Negative) Urine Color Urine Appearance (Clear) Urine pH (4.5-7.5) Ur Specific [place] (1.000-1.030) Urine Protein (Negative) Urine Glucose (UA) (Negative) Urine Ketones (Negative) Urine Blood (Negative) Urine Nitrite (Negative) Urine Bilirubin (Negative) Urine Urobilinogen (Negative) Ur Leukocyte Esterase (Negative) POC Ur Test (NEG) C.trachomatis RNA (NOT DETECTED) N.gonorrhoeae RNA (NOT DETECTED) T.vaginalis (Amp Det) (NOT DETECTED) Reference Lab Comment Blood Type Antibody Screen 01/22/21 01/22/21 01/22/21 Range/Units 02:00 05:53 05:55 WBC (4.8-10.8) K/uL RBC (4.2-5.4) M/uL Hgb (12.0-16.0) g/dL Hct (37-47) % MCV (80-100) fL MCH (25-34) pg MCHC (32-36) g/dL RDW Std Deviation (36.4-46.3) fL RDW Coeff of Sachi (11.5-14.5) % Plt Count (130-400) K/uL MPV (7.4-10.4) fL Immature Gran % (Auto) % Neut % (Auto) % Lymph % (Auto) % [place] % (Auto) % Eos % (Auto) % Baso % (Auto) % Neut # (Auto) (1.4-6.5) K/uL Lymph # (Auto) (1.2-3.4) K/uL [place] # (Auto) (0.11-0.59) K/uL Eos # (Auto) (0-0.5) K/uL Baso # (Auto) (0-0.2) K/uL Immature Gran # (Auto) (0.00-0.02) K/uL RBC Morphology PT (9.0-12.0) Seconds INR (0.9-1.1) APTT (21.0-31.0) Seconds PTT Ratio Sodium (136-145) mmol/L Potassium (3.5-5.1) mmol/L Chloride (98-107) mmol/L Carbon Dioxide (21-32) mmol/L Anion Gap (3-11) BUN (7-18) mg/dl Creatinine (0.6-1.2) mg/dl Est Cr Clr Drug Dosing ml/min Est GFR ( Amer) Est GFR (Non-Af Amer) BUN/Creatinine Ratio (10-20) Glucose (70-99) mg/dl Lactate 1.1 (0.4-2.0) mmol/L Calcium (8.5-10.1) mg/dl Total Bilirubin (0.2-1) mg/dl AST (15-37) U/L ALT (12-78) U/L Alkaline Phosphatase (45-117) U/L Total Protein (6.4-8.2) gm/dl Albumin (3.4-5.0) gm/dl Globulin (2.5-4.0) gm/dl Albumin/Globulin Ratio (0.9-2) Lipase (73-393) U/L HCG, Qual Negative (Negative) Urine Color Urine Appearance (Clear) Urine pH (4.5-7.5) Ur Specific [place] (1.000-1.030) Urine Protein (Negative) Urine Glucose (UA) (Negative) Urine Ketones (Negative) Urine Blood (Negative) Urine Nitrite (Negative) Urine Bilirubin (Negative) Urine Urobilinogen (Negative) Ur Leukocyte Esterase (Negative) POC Ur Test (NEG) C.trachomatis RNA NOT DETECTED (NOT DETECTED) N.gonorrhoeae RNA NOT DETECTED (NOT DETECTED) T.vaginalis (Amp Det) NOT DETECTED (NOT DETECTED) Reference Lab Comment SEE NOTE Blood Type Antibody Screen Imaging Data Radiologist's Impression: CT SCAN OF THE ABDOMEN AND PELVIS WITHOUT CONTRAST CLINICAL HISTORY: Generalized abdominal pain COMPARISON STUDY: No previous studies for comparison. TECHNIQUE: CT scan of the abdomen and pelvis was performed from the lung bases to the proximal femurs. Images are reviewed in the axial, sagittal, and coronal planes. IV contrast was not administered for this examination. A dose lowering technique was utilized adhering to the principles of ALARA. CT DOSE: 1533.11 mGy.cm FINDINGS: Lower chest: The heart is normal in size and configuration, without pericardial effusion. The lung bases and pleural spaces are clear. Liver: The unenhanced liver is normal in size, contour, and attenuation. There is no intrahepatic biliary ductal dilatation. Gallbladder: Unremarkable. Spleen: Normal in size and attenuation. Pancreas: Unremarkable. Adrenal glands: Unremarkable. Kidneys: The unenhanced kidneys are normal in size without hydronephrosis. There is no contour deforming renal mass lesion. No renal calculi are identified. Bowel: There are no transition zones indicate bowel obstruction. There is no evidence of acute diverticulitis. The appendix is not visualized with certainty. Peritoneum: There is trace pelvic fluid. There is no free intraperitoneal air. There is tiny fat-containing umbilical hernia Vasculature: The abdominal aorta is normal in course and caliber. Adenopathy: None. Pelvic viscera: There is trace fluid within the adnexa. There is soft tissue prominence of the adnexal regions. The adnexal structures are difficult to assess without intravenous contrast. Periovarian hemorrhage cannot be excluded. Skeletal structures: No destructive osseous lesions are seen. IMPRESSION: 1. No evidence of bowel obstruction. No evidence of free air 2. No evidence of acute diverticulitis. Nonvisualization of the appendix. 3. Small amount of fluid within the adnexal regions with slight ill-definition of the adnexal structures. 4. Periovarian hemorrhage cannot be excluded. Preliminary Findings Only See Final Report For Complete Findings US PELVIC/ENDOVAG: No prior exam for years. Uterus measures 8.9 x 3.8 x 4.8 cm. Normal endometrium measuring 8.2 mm. No uterine or endometrial mass. Normal right ovary measuring 5.4 x 3.1 x 3.7 cm with normal flow. There are 2 heterogeneous masses in the region of the right ovary, largest head small bowel echoes and measures 3.9 x 1.5 x 2.6 cm. This could represent hemorrhagic cyst. Left ovary measures 3.1 x 2.1 x 3.0 cm with normal flow. A hypoechoic mass seen within the left ovary with low-level echoes which could represent a hemorrhagic cyst. Differential diagnosis includes infectious process, neoplasm or endometrioma. And elongated complex fluid collection versus tubular structure within the left ovary which could represent hydrosalpinx measuring 3.4 x 0.9 x 1.2 cm. Complex fluid collection surrounding the right ovary versus mass. Presuming the patient is hCG negative, these findings reflect infectious process, correlation with pelvic inflammatory disease. Complex hemorrhagic fluid may be associated with ruptured hemorrhagic cyst, endometrioma or neoplasm cannot be entirely excluded. If indicated, these findings may be further assessed with MRI of the pelvis along with ASSISTANT CONTROLLER consultation. MDM Narrative Physical exam and history were performed. Nursing notes, EMR, and Medication List were personally reviewed. Patient appears to have significant abdominal pain that began acutely just prior to arrival. She has had 10 mg IV morphine before arrival by ambulance, and still appears quite tender. The patient was given IV fentanyl, IV Ativan, IV Dilaudid, and IV Toradol. She was hydrated with normal saline and given additional IV Zofran. We were able to get a urine sample fairly quickly, and urine is negative. She was immediately sent to CT scan for further evaluation. The patient's blood work is as above and was reviewed. She does have a notably elevated white blood cell count of 26,000. She does not have a significant anemia or gross electrolyte imbalance. CT scan was reviewed by myself and radiology and did not show obvious distinct process explaining her symptoms. Because of this she was then sent to ultrasound for further evaluation. Patient ultrasound is as above and is somewhat complicated. She does seem to have some fluid near and around the ovaries, as well as a tubular fluid collection which could be hydrosalpinx versus other. The patient symptoms seem to be concerning for ASSISTANT CONTROLLER etiology based on ultrasound, and I did discuss the case with the on-call OB, Dr. Holly, who did evaluate the patient here in the ER. Dr Holly did perform pelvic exam at bedside, and evidently the patient has significant cervical motion tenderness. Pelvic and blood cultures were obtained. The patient was given IV gentamicin, ampicillin, and clindamycin here in the ER. The patient will be admitted for further evaluation by Dr Holly. Please see her dictation for further patient course, plan, and disposition. The chart was completed utilizing [email or web address] Speech Voice Recognition Software. Grammatical errors, random word insertions, pronoun errors, and incomplete sentences are an occasional consequence of this system due to software limitations, ambient noise, and hardware issues. Any formal questions or concerns about the content, text, or information contained within the body of this dictation should be directly addressed to the provider for clarification. . Impression & Plan Abdominal pain, Pelvic pain, Cervical motion tenderness, Abnormal finding on imaging Discharge Plan Visit Data Chief Complaint: Abdominal Pain Stated Complaint: ABDOMINAL PAIN ED Provider: Kennedy Hoover ED Midlevel Provider: Santiago Gonzalez Discharge Problem: Abdominal pain, Pelvic pain, Cervical motion tenderness, Abnormal finding on imaging Patient Disposition: Admitted As Inpatient Discharge Instructions Interventions: ED Discharge Assessment Last Done: 06/23/20 08:33 Discharge Problem: Abdominal pain Qualifiers: Abdominal location: generalized Qualified Code(s): R10.84 - Generalized abdominal pain
--- NOTE | 2020-06-23 08:10 | Ultrasound Report ---
US pelvic complete HISTORY: 30 years-old Female low abd pain acute lower abdominal pain COMPARISON: CT abdomen and pelvis 06/23/2020 TECHNIQUE: Multiple real-time sonographic images of the deep pelvic structures were obtained transabd ominally and transvaginally assessing grayscale appearance, color and spectral flow FINDINGS: TRANSABDOMINAL: Anteflexed uterus measures 8.8 x 3.4 x 3.5 cm. Endometrium measures 8 mm in thickness. Right ovary me asures 2.7 x 4.6 x 2.8 cm. The left ovary measures 2.0 x 3.8 x 2.0 cm demonstrating arterial inflow. The ovaries are suboptimally visualized. TRANSVAGINAL: Uterus measures 8.9 x 3.8 x 4.8 cm with volume of 85 mL. Endometrium measures 1.1 cm in thickness. The left ovary measures 3.1 x 2.1 x 3.0 cm with arterial inflow and venous outflow. Mildly hypoechoic complex lesion within the left ovary measures 1.3 x 1.0 x 0.9 cm without blood flow. There is elonga tion and somewhat tubular hypoechoic structure within left adnexa which measures approximately 3.4 x 0.9 x 1.2 cm mild complex free fluid is noted adjacent to the left adnexum. Right ovary measures 5.4 x 3.1 x 3.7 cm with arterial inflow. There are 2 heterogeneous mildly echoge noah lesions noted within the right adnexal distribution, largest of which measures 3.9 x 1.5 x 2.6 cm containing mobile debris within it. IMPRESSION: 1. Unremarkable sonographic appearance of the uterus and endometrium. 2. No ovarian torsion. 3. Complex lesions of the bilateral adnexal distributions measuring up to 3.9 cm on the right are sug gestive of hemorrhagic cysts versus endometriomas. Infectious etiology with tubo-ovarian abscess cons idered less likely. Follow-up pelvic ultrasound in 8 weeks or 2 menstrual cycles is recommended to fu rther evaluate. 4. Possible hematosalpinx on the left. ACT 112: Negative or not required by law. The above report was generated using voice recognition software. It may contain grammatical, syntax o r spelling errors. Electronically signed by: Km Sánchez M.D. 06/23/2020 8:09 AM
[2020-06-23] MEDS: LACTATED RINGER'S 1,000 ML IV SCH ×2 (09:00→16:49)
[2020-06-23 10:56] LABS: Creatinine Clr Calc Pharmacy 122.1 ml/min; Est GFR (Non-African American) 108.7
--- NOTE | 2020-06-23 10:57 | Pharmacy Report ---
Pharmacy Abx Initial Consult - Date of Service June 23, 2020 - Pharmacy Dosing Scope Date of Consult: 06/23/20 Consultation requested by: Dr. Phillips Pharmacy is consulted to initiate GENTAMICIN IV (also ordered ampicillin + Clindamycin IV) dosing therapy, order appropriate labs and adjust drug dose/freq uency. - Subjective The patient is a 30 year old F admitted on 06/23/20 06:10. - Objective Height: 5 ft 6 in Weight: 85 kg Vital Signs (Past 12hrs): Vital Signs Temp Pulse Resp BP Pulse Ox 06/23/20 08:01 120 H 20 95 06/23/20 08:00 115 H 18 108/72 95 06/23/20 07:31 114 H 15 94 06/23/20 07:30 114 H 17 119/76 94 06/23/20 07:15 121 H 25 H 106/79 97 06/23/20 07:01 121 H 19 95 06/23/20 07:00 121 H 31 H 118/71 97 06/23/20 06:45 123 H 21 99/73 L 95 06/23/20 06:31 118 H 14 95 06/23/20 06:30 120 H 19 115/78 95 06/23/20 06:20 122 H 21 95 06/23/20 06:15 123 H 15 113/68 93 06/23/20 06:00 128 H 18 121/84 94 06/23/20 05:58 135 H 16 121/88 97 06/23/20 05:50 128 H 17 97 06/23/20 05:30 114 H 20 116/81 96 06/23/20 05:16 127 H 20 96/72 L 97 06/23/20 05:00 120 H 21 102/88 96 06/23/20 04:45 134 H 17 112/80 96 06/23/20 04:30 126 H 15 110/82 97 06/23/20 04:25 135 H 18 125/87 98 06/23/20 03:30 115 H 17 112/73 98 06/23/20 03:15 116 H 19 129/76 99 06/23/20 03:00 117 H 17 132/68 98 06/23/20 02:45 112 H 17 124/78 96 06/23/20 02:33 121 H 19 124/78 97 01/22/21 02:32 119 H 18 06/23/20 02:20 123 H 15 95 06/23/20 02:18 120 H 16 142/96 H 96 06/23/20 02:10 123 H 26 H 98 06/23/20 02:00 37.2 C 116 H 29 H 125/102 H 99 06/23/20 01:52 133 H 33 H 125/102 H 92 06/23/20 01:50 127 H 21 97 Lab Results (24hrs): Laboratory Tests (24 Hours) 06/23/20 06/23/20 02:00 02:00 WBC 26.69 H Neut # (Auto) 23.29 H Creatinine 0.79 Est Cr Clr Drug Dosing 114.4 Micro Results: 06/23/20 05:55 Gram Stain - Final Vaginal Genital Culture - Pending 06/23/20 05:53 Aerobic Blood Culture - Pending Blood Anaerobic Blood Culture - Pending 06/23/20 05:53 Aerobic Blood Culture - Pending Blood Anaerobic Blood Culture - Pending - Assessment & Plan Assessment 30 year old F initiated on IV Gentamicin + Ampicillin + Clindamycin for Endometriosis/PID Plan Gentamicin * Gentamicin 300mg (5mg/kg IBW) IV x 1 given in ED @ 0730 * Random Gentamicin level 10 hrs after initial dose (today at 1730) * Will apply random level to [employer] Nomogram and determine dosing interval Ampicillin * Ampicillin 2,000mg IV Q6hrs Clindamycin * Clindamycin 900mg IV Q8hrs Pharmacy will continue to follow and will adjust dose/frequency as necessary. Thank you.
[2020-06-23] MEDS: MoRPHine SULFATE 4 MG/ML 1 ML CARP\\VIAL IV PRN ×3 (12:18→20:39)
[2020-06-23] MEDS: KETOROLAC TROMETHAMINE 15 MG/ML VIAL IV PRN ×2 (12:18→18:11)
[2020-06-23] MEDS: CLINDAMYCIN 900 MG in DEXTROSE 5% 50 ML IV SCH ×2 (14:15→21:39)
[2020-06-23] MEDS: ACETAMINOPHEN 1,000 MG/100 ML VIAL IV PRN (16:49)
[2020-06-23] MEDS: ONDANSETRON INJ 2 MG/ML 2 ML VIAL IV PRN (19:18)
--- NOTE | 2020-06-23 19:32 | Pharmacy Report ---
Pharmacy Abx Dose Short Note - Date of Service June 23, 2020 - Assessment & Plan Assessment 30 year old F receiving gentamicin for treatment of endometritis Day # 1 of antimicrobial therapy. Pt received gentamicin 300mg (5mg/kg based on IBW) x 1 @ 0730 this morning. Plan Gentamicin * Patient meets criteria for extended-interval aminoglycoside dosing per the Urban-Taj nomogram. * Random level of 0.6 mcg/ml drawn 10 hours after start of infusion indicates a dosing interval of every 24 hours. * Start 350 mg (5 mg/kg ) every 24 hours. * Dosage based on adjusted body weight for patients weighing > 120% of ideal body weight. Adj weight=69.58kg * May consider ordering a trough level in ~5 days if gent continued or if change in renal function. Pharmacy will continue to follow and will adjust dose/frequency as necessary. Thank you.
[2020-06-24] MEDS: MoRPHine SULFATE 4 MG/ML 1 ML CARP\\VIAL IV PRN ×2 (01:03→04:22)
[2020-06-24] MEDS: KETOROLAC TROMETHAMINE 15 MG/ML VIAL IV PRN ×2 (02:01→11:57)
[2020-06-24] MEDS: HYDROmorphone INJ 0.5 MG/0.5 ML SYR IV PRN ×5 (02:36→11:58)
[2020-06-24] MEDS: LACTATED RINGER'S 1,000 ML IV SCH ×3 (02:52→22:27)
[2020-06-24] MEDS: AMPICILLIN 2,000 MG in SODIUM CHLOR 0.9% AD-VAN 100 ML IV SCH ×4 (05:24→23:30)
[2020-06-24 06:08] LABS: Basophils # (auto) 0.01 K/uL (0-0.2); Basophils % (auto) 0.1 %; Eosinophils # (auto) 0.05 K/uL (0-0.5); Eosinophils % (auto) 0.4 %; Hematocrit (blood only) 35.1 % (37-47); Hemoglobin 11.7 g/dL (12.0-16.0); Immature Granulocytes # (auto) 0.02 K/uL (0.00-0.02); Immature Granulocytes % (auto) 0.2 %; Lymphocytes # (auto) 1.65 K/uL (1.2-3.4); Lymphocytes % (auto) 12.6 %; Mean Corpuscular Hemoglobin 29.5 pg (25-34); Mean Corpuscular Hgb Conc 33.3 g/dL (32-36); Mean Corpuscular Volume 88.6 fL (80-100); Mean Platelet Volume 11.3 fL (7.4-10.4); Monocytes # (auto) 0.81 K/uL (0.11-0.59); Monocytes % (auto) 6.2 %; Neutrophils # (auto) 10.57 K/uL (1.4-6.5); Neutrophils % (auto) 80.5 %; Platelet Count 207 K/uL (130-400); RDW Coefficient of Variation 13.9 % (11.5-14.5); RDW Standard Deviation 45.8 fL (36.4-46.3); Red Blood Count 3.96 M/uL (4.2-5.4); White Blood Count 13.11 K/uL (4.8-10.8)
[2020-06-24] MEDS: CLINDAMYCIN 900 MG in DEXTROSE 5% 50 ML IV SCH ×3 (06:12→22:27)
[2020-06-24 07:01] LABS: Creatinine Clr Calc Pharmacy 148.1 ml/min; Est GFR (Non-African American) 121.7
--- NOTE | 2020-06-24 07:12 | Electrocardiogram Report ---
Test Reason : Blood Pressure : / mmHG Vent. Rate : 114 BPM Atrial Rate : 114 BPM P-R Int : 130 ms QRS Dur : 076 ms QT Int : 324 ms P-R-T Axes : 049 045 020 degrees QTc Int : 446 ms Sinus tachycardia Otherwise normal ECG No previous ECGs available Confirmed by Miguel Duque ([id number]) on 06/24/2020 7:12:15 AM Referred By: REFERRED SELF Confirmed By:Miguel Duque
[2020-06-24] MEDS ORDERED: GENTAMICIN SULFATE 300 MG in DEXTROSE 5% 100 ML IV SCH (07:30)
[2020-06-24] MEDS: ONDANSETRON INJ 2 MG/ML 2 ML VIAL IV PRN ×2 (07:55→20:44)
[2020-06-24] MEDS: GENTAMICIN SULFATE 350 MG in DEXTROSE 5% 100 ML IV SCH (07:55)
--- NOTE | 2020-06-24 11:47 | Gynecologic Progress Note ---
Date of Service June 24, 2020 Assessment & Plan Admission and Anticipated Discharge Date Admission Date: June 23, 2020 Subjective still in pain tolerating diet passing gas out of bed to bathroom Physical Exam Constitutional: WD/WN, vitals as above mild appearance e of discomfort from pain abdomen not distended soft no masses no rebound or guarding left side is more tender than right with deep palpation no edema neg Julito's will encourage PO pain meds and ambulation CBC in AM Results & Data ([facility]) Vital Signs (Past 12 Hours) Vital Signs Temp Pulse Resp BP Pulse Ox Pulse Ox 06/24/20 07:30 36.9 C 108 H 18 113/75 96 06/24/20 03:00 37.1 C 98 H 20 100/63 96 96 Laboratory Results Laboratory Results - last 48 hr 06/23/20 06/23/20 06/23/20 01:50 01:50 02:00 WBC RBC Hgb Hct MCV MCH MCHC RDW Std Deviation RDW Coeff of Sachi Plt Count MPV Immature Gran % (Auto) Neut % (Auto) Lymph % (Auto) [place] % (Auto) Eos % (Auto) Baso % (Auto) Neut # (Auto) Lymph # (Auto) [place] # (Auto) Eos # (Auto) Baso # (Auto) Immature Gran # (Auto) RBC Morphology PT INR APTT PTT Ratio Sodium Potassium Chloride Carbon Dioxide Anion Gap BUN Creatinine Est Cr Clr Drug Dosing Est GFR ( Amer) Est GFR (Non-Af Amer) BUN/Creatinine Ratio Glucose Lactate Calcium Total Bilirubin AST ALT Alkaline Phosphatase Total Protein Albumin Globulin Albumin/Globulin Ratio Lipase HCG, Qual Urine Color Yellow Urine Appearance Clear Urine pH 6.5 Ur Specific [place] 1.020 Urine Protein Negative Urine Glucose (UA) Negative Urine Ketones Trace H Urine Blood Negative Urine Nitrite Negative Urine Bilirubin Negative Urine Urobilinogen Negative Ur Leukocyte Esterase Negative POC Ur Test NEG Random Gentamicin COVID-19 Eval Order SARS-CoV-2, RNA, NAAT Blood Type A Positive Antibody Screen NEGATIVE 06/23/20 06/23/20 06/23/20 02:00 02:00 02:00 WBC 26.69 H RBC 4.79 Hgb 13.8 Hct 41.8 MCV 87.3 MCH 28.8 MCHC 33.0 RDW Std Deviation 43.6 RDW Coeff of Sachi 13.7 Plt Count 286 MPV 11.6 H Immature Gran % (Auto) 0.4 Neut % (Auto) 87.2 Lymph % (Auto) 7.8 [place] % (Auto) 4.4 Eos % (Auto) 0.1 Baso % (Auto) 0.1 Neut # (Auto) 23.29 H Lymph # (Auto) 2.07 [place] # (Auto) 1.17 H Eos # (Auto) 0.02 Baso # (Auto) 0.02 Immature Gran # (Auto) 0.12 H RBC Morphology Unremarkable PT 11.5 INR 1.1 APTT 27.6 PTT Ratio 1.0 Sodium 140 Potassium 3.7 Chloride 111 H Carbon Dioxide 23 Anion Gap 6.0 BUN 9 Creatinine 0.79 Est Cr Clr Drug Dosing 114.4 Est GFR ( Amer) 116.4 Est GFR (Non-Af Amer) 100.5 BUN/Creatinine Ratio 11.6 Glucose 116 H Lactate Calcium 9.0 Total Bilirubin 0.3 AST 9 L ALT 16 Alkaline Phosphatase 60 Total Protein 7.7 Albumin 4.0 Globulin 3.7 Albumin/Globulin Ratio 1.1 Lipase 87 HCG, Qual Urine Color Urine Appearance Urine pH Ur Specific [place] Urine Protein Urine Glucose (UA) Urine Ketones Urine Blood Urine Nitrite Urine Bilirubin Urine Urobilinogen Ur Leukocyte Esterase POC Ur Test Random Gentamicin COVID-19 Eval Order SARS-CoV-2, RNA, NAAT Blood Type Antibody Screen 06/23/20 06/23/20 06/23/20 02:00 05:53 07:16 WBC RBC Hgb Hct MCV MCH MCHC RDW Std Deviation RDW Coeff of Sachi Plt Count MPV Immature Gran % (Auto) Neut % (Auto) Lymph % (Auto) [place] % (Auto) Eos % (Auto) Baso % (Auto) Neut # (Auto) Lymph # (Auto) [place] # (Auto) Eos # (Auto) Baso # (Auto) Immature Gran # (Auto) RBC Morphology PT INR APTT PTT Ratio Sodium Potassium Chloride Carbon Dioxide Anion Gap BUN Creatinine Est Cr Clr Drug Dosing Est GFR ( Amer) Est GFR (Non-Af Amer) BUN/Creatinine Ratio Glucose Lactate 1.1 Calcium Total Bilirubin AST ALT Alkaline Phosphatase Total Protein Albumin Globulin Albumin/Globulin Ratio Lipase HCG, Qual Negative Urine Color Urine Appearance Urine pH Ur Specific [place] Urine Protein Urine Glucose (UA) Urine Ketones Urine Blood Urine Nitrite Urine Bilirubin Urine Urobilinogen Ur Leukocyte Esterase POC Ur Test Random Gentamicin COVID-19 Eval Order Covid19 IDNow atMUTC SARS-CoV-2, RNA, NAAT Blood Type Antibody Screen 06/23/20 06/23/20 06/23/20 07:16 10:15 17:41 WBC RBC Hgb Hct MCV MCH MCHC RDW Std Deviation RDW Coeff of Sachi Plt Count MPV Immature Gran % (Auto) Neut % (Auto) Lymph % (Auto) [place] % (Auto) Eos % (Auto) Baso % (Auto) Neut # (Auto) Lymph # (Auto) [place] # (Auto) Eos # (Auto) Baso # (Auto) Immature Gran # (Auto) RBC Morphology PT INR APTT PTT Ratio Sodium Potassium Chloride Carbon Dioxide Anion Gap BUN Creatinine 0.74 Est Cr Clr Drug Dosing 122.1 Est GFR ( Amer) 126.0 Est GFR (Non-Af Amer) 108.7 BUN/Creatinine Ratio Glucose Lactate Calcium Total Bilirubin AST ALT Alkaline Phosphatase Total Protein Albumin Globulin Albumin/Globulin Ratio Lipase HCG, Qual Urine Color Urine Appearance Urine pH Ur Specific [place] Urine Protein Urine Glucose (UA) Urine Ketones Urine Blood Urine Nitrite Urine Bilirubin Urine Urobilinogen Ur Leukocyte Esterase POC Ur Test Random Gentamicin 0.60 COVID-19 Eval Order SARS-CoV-2, RNA, NAAT NEGATIVE Blood Type Antibody Screen 06/24/20 06/24/20 05:44 05:44 WBC 13.11 H RBC 3.96 L Hgb 11.7 L Hct 35.1 L MCV 88.6 MCH 29.5 MCHC 33.3 RDW Std Deviation 45.8 RDW Coeff of Sachi 13.9 Plt Count 207 MPV 11.3 H Immature Gran % (Auto) 0.2 Neut % (Auto) 80.5 Lymph % (Auto) 12.6 [place] % (Auto) 6.2 Eos % (Auto) 0.4 Baso % (Auto) 0.1 Neut # (Auto) 10.57 H Lymph # (Auto) 1.65 [place] # (Auto) 0.81 H Eos # (Auto) 0.05 Baso # (Auto) 0.01 Immature Gran # (Auto) 0.02 RBC Morphology PT INR APTT PTT Ratio Sodium Potassium Chloride Carbon Dioxide Anion Gap BUN Creatinine 0.61 Est Cr Clr Drug Dosing 148.1 Est GFR ( Amer) 141.0 Est GFR (Non-Af Amer) 121.7 BUN/Creatinine Ratio Glucose Lactate Calcium Total Bilirubin AST ALT Alkaline Phosphatase Total Protein Albumin Globulin Albumin/Globulin Ratio Lipase HCG, Qual Urine Color Urine Appearance Urine pH Ur Specific [place] Urine Protein Urine Glucose (UA) Urine Ketones Urine Blood Urine Nitrite Urine Bilirubin Urine Urobilinogen Ur Leukocyte Esterase POC Ur Test Random Gentamicin COVID-19 Eval Order SARS-CoV-2, RNA, NAAT Blood Type Antibody Screen
[2020-06-24] MEDS: oxyCODONE/ACETAMINOPHEN 5mg/325mg TAB PO PRN ×3 (13:59→22:26)
[2020-06-24] MEDS: IBUPROFEN 600 MG TAB PO PRN ×2 (17:36→21:41)
[2020-06-25] MEDS: IBUPROFEN 600 MG TAB PO PRN ×2 (00:58→13:53)
[2020-06-25] MEDS: ONDANSETRON INJ 2 MG/ML 2 ML VIAL IV PRN ×2 (04:04→11:14)
[2020-06-25] MEDS: AMPICILLIN 2,000 MG in SODIUM CHLOR 0.9% AD-VAN 100 ML IV SCH ×4 (05:25→23:30)
[2020-06-25] MEDS: ACETAMINOPHEN 1,000 MG/100 ML VIAL IV PRN (05:32)
[2020-06-25] MEDS: CLINDAMYCIN 900 MG in DEXTROSE 5% 50 ML IV SCH ×3 (06:05→21:47)
[2020-06-25 06:37] LABS: Basophils # (auto) 0.02 K/uL (0-0.2); Basophils % (auto) 0.2 %; Eosinophils # (auto) 0.09 K/uL (0-0.5); Hematocrit (blood only) 31.8 % (37-47); Hemoglobin 10.3 g/dL (12.0-16.0); Immature Granulocytes # (auto) 0.01 K/uL (0.00-0.02); Immature Granulocytes % (auto) 0.1 %; Lymphocytes # (auto) 1.57 K/uL (1.2-3.4); Lymphocytes % (auto) 17.5 %; Mean Corpuscular Hemoglobin 28.6 pg (25-34); Mean Corpuscular Hgb Conc 32.4 g/dL (32-36); Mean Corpuscular Volume 88.3 fL (80-100); Mean Platelet Volume 11.3 fL (7.4-10.4); Monocytes # (auto) 0.74 K/uL (0.11-0.59); Monocytes % (auto) 8.2 %; Neutrophils # (auto) 6.56 K/uL (1.4-6.5); Platelet Count 183 K/uL (130-400); RDW Standard Deviation 45.6 fL (36.4-46.3); White Blood Count 8.99 K/uL (4.8-10.8)
[2020-06-25 07:10] LABS: Creatinine Clr Calc Pharmacy 153.1 ml/min; Est GFR (African American) 142.5
[2020-06-25] MEDS: KETOROLAC TROMETHAMINE 15 MG/ML VIAL IV PRN ×2 (07:49→20:18)
[2020-06-25] MEDS: GENTAMICIN SULFATE 350 MG in DEXTROSE 5% 100 ML IV SCH (07:50)
[2020-06-25] MEDS: oxyCODONE/ACETAMINOPHEN 5mg/325mg TAB PO PRN ×2 (11:14→22:34)
[2020-06-25] MEDS: LACTATED RINGER'S 1,000 ML IV SCH ×2 (11:14→21:45)
[2020-06-25] MEDS ORDERED: ONDANSETRON 4 MG OD TAB PO PRN (11:24)
--- NOTE | 2020-06-25 11:28 | Gynecologic Progress Note ---
Date of Service June 25, 2020 Assessment & Plan Admission and Anticipated Discharge Date Admission Date: June 23, 2020 Subjective Still having left sided pain nausea persists some loose stool noted blood cultures positive/sensitivity pending Results & Data ([facility]) Vital Signs (Past 12 Hours) Vital Signs Temp Pulse Resp BP Pulse Ox 06/25/20 07:50 36.9 C 84 18 114/77 97 06/25/20 04:10 36.9 C 73 18 95/63 L 97 06/24/20 23:30 36.5 C 84 16 98/67 L 98 Laboratory Results Laboratory Results - last 72 hr 06/23/20 06/23/20 06/23/20 01:50 01:50 02:00 WBC RBC Hgb Hct MCV MCH MCHC RDW Std Deviation RDW Coeff of Sachi Plt Count MPV Immature Gran % (Auto) Neut % (Auto) Lymph % (Auto) [place] % (Auto) Eos % (Auto) Baso % (Auto) Neut # (Auto) Lymph # (Auto) [place] # (Auto) Eos # (Auto) Baso # (Auto) Immature Gran # (Auto) RBC Morphology PT INR APTT PTT Ratio Sodium Potassium Chloride Carbon Dioxide Anion Gap BUN Creatinine Est Cr Clr Drug Dosing Est GFR ( Amer) Est GFR (Non-Af Amer) BUN/Creatinine Ratio Glucose Lactate Calcium Total Bilirubin AST ALT Alkaline Phosphatase Total Protein Albumin Globulin Albumin/Globulin Ratio Lipase HCG, Qual Urine Color Yellow Urine Appearance Clear Urine pH 6.5 Ur Specific [place] 1.020 Urine Protein Negative Urine Glucose (UA) Negative Urine Ketones Trace H Urine Blood Negative Urine Nitrite Negative Urine Bilirubin Negative Urine Urobilinogen Negative Ur Leukocyte Esterase Negative POC Ur Test NEG Random Gentamicin COVID-19 Eval Order SARS-CoV-2, RNA, NAAT Blood Type A Positive Antibody Screen NEGATIVE 06/23/20 06/23/20 06/23/20 02:00 02:00 02:00 WBC 26.69 H RBC 4.79 Hgb 13.8 Hct 41.8 MCV 87.3 MCH 28.8 MCHC 33.0 RDW Std Deviation 43.6 RDW Coeff of Sachi 13.7 Plt Count 286 MPV 11.6 H Immature Gran % (Auto) 0.4 Neut % (Auto) 87.2 Lymph % (Auto) 7.8 [place] % (Auto) 4.4 Eos % (Auto) 0.1 Baso % (Auto) 0.1 Neut # (Auto) 23.29 H Lymph # (Auto) 2.07 [place] # (Auto) 1.17 H Eos # (Auto) 0.02 Baso # (Auto) 0.02 Immature Gran # (Auto) 0.12 H RBC Morphology Unremarkable PT 11.5 INR 1.1 APTT 27.6 PTT Ratio 1.0 Sodium 140 Potassium 3.7 Chloride 111 H Carbon Dioxide 23 Anion Gap 6.0 BUN 9 Creatinine 0.79 Est Cr Clr Drug Dosing 114.4 Est GFR ( Amer) 116.4 Est GFR (Non-Af Amer) 100.5 BUN/Creatinine Ratio 11.6 Glucose 116 H Lactate Calcium 9.0 Total Bilirubin 0.3 AST 9 L ALT 16 Alkaline Phosphatase 60 Total Protein 7.7 Albumin 4.0 Globulin 3.7 Albumin/Globulin Ratio 1.1 Lipase 87 HCG, Qual Urine Color Urine Appearance Urine pH Ur Specific [place] Urine Protein Urine Glucose (UA) Urine Ketones Urine Blood Urine Nitrite Urine Bilirubin Urine Urobilinogen Ur Leukocyte Esterase POC Ur Test Random Gentamicin COVID-19 Eval Order SARS-CoV-2, RNA, NAAT Blood Type Antibody Screen 06/23/20 06/23/20 06/23/20 02:00 05:53 07:16 WBC RBC Hgb Hct MCV MCH MCHC RDW Std Deviation RDW Coeff of Sachi Plt Count MPV Immature Gran % (Auto) Neut % (Auto) Lymph % (Auto) [place] % (Auto) Eos % (Auto) Baso % (Auto) Neut # (Auto) Lymph # (Auto) [place] # (Auto) Eos # (Auto) Baso # (Auto) Immature Gran # (Auto) RBC Morphology PT INR APTT PTT Ratio Sodium Potassium Chloride Carbon Dioxide Anion Gap BUN Creatinine Est Cr Clr Drug Dosing Est GFR ( Amer) Est GFR (Non-Af Amer) BUN/Creatinine Ratio Glucose Lactate 1.1 Calcium Total Bilirubin AST ALT Alkaline Phosphatase Total Protein Albumin Globulin Albumin/Globulin Ratio Lipase HCG, Qual Negative Urine Color Urine Appearance Urine pH Ur Specific [place] Urine Protein Urine Glucose (UA) Urine Ketones Urine Blood Urine Nitrite Urine Bilirubin Urine Urobilinogen Ur Leukocyte Esterase POC Ur Test Random Gentamicin COVID-19 Eval [facility] SARS-CoV-2, RNA, NAAT Blood Type Antibody Screen 06/23/20 06/23/20 06/23/20 07:16 10:15 17:41 WBC RBC Hgb Hct MCV MCH MCHC RDW Std Deviation RDW Coeff of Sachi Plt Count MPV Immature Gran % (Auto) Neut % (Auto) Lymph % (Auto) [place] % (Auto) Eos % (Auto) Baso % (Auto) Neut # (Auto) Lymph # (Auto) [place] # (Auto) Eos # (Auto) Baso # (Auto) Immature Gran # (Auto) RBC Morphology PT INR APTT PTT Ratio Sodium Potassium Chloride Carbon Dioxide Anion Gap BUN Creatinine 0.74 Est Cr Clr Drug Dosing 122.1 Est GFR ( Amer) 126.0 Est GFR (Non-Af Amer) 108.7 BUN/Creatinine Ratio Glucose Lactate Calcium Total Bilirubin AST ALT Alkaline Phosphatase Total Protein Albumin Globulin Albumin/Globulin Ratio Lipase HCG, Qual Urine Color Urine Appearance Urine pH Ur Specific [place] Urine Protein Urine Glucose (UA) Urine Ketones Urine Blood Urine Nitrite Urine Bilirubin Urine Urobilinogen Ur Leukocyte Esterase POC Ur Test Random Gentamicin 0.60 COVID-19 Eval Order SARS-CoV-2, RNA, NAAT NEGATIVE Blood Type Antibody Screen 06/24/20 06/24/20 06/25/20 05:44 05:44 06:07 WBC 13.11 H RBC 3.96 L Hgb 11.7 L Hct 35.1 L MCV 88.6 MCH 29.5 MCHC 33.3 RDW Std Deviation 45.8 RDW Coeff of Sachi 13.9 Plt Count 207 MPV 11.3 H Immature Gran % (Auto) 0.2 Neut % (Auto) 80.5 Lymph % (Auto) 12.6 [place] % (Auto) 6.2 Eos % (Auto) 0.4 Baso % (Auto) 0.1 Neut # (Auto) 10.57 H Lymph # (Auto) 1.65 [place] # (Auto) 0.81 H Eos # (Auto) 0.05 Baso # (Auto) 0.01 Immature Gran # (Auto) 0.02 RBC Morphology PT INR APTT PTT Ratio Sodium Potassium Chloride Carbon Dioxide Anion Gap BUN Creatinine 0.61 0.59 L Est Cr Clr Drug Dosing 148.1 153.1 Est GFR ( Amer) 141.0 142.5 Est GFR (Non-Af Amer) 121.7 123.0 BUN/Creatinine Ratio Glucose Lactate Calcium Total Bilirubin AST ALT Alkaline Phosphatase Total Protein Albumin Globulin Albumin/Globulin Ratio Lipase HCG, Qual Urine Color Urine Appearance Urine pH Ur Specific [place] Urine Protein Urine Glucose (UA) Urine Ketones Urine Blood Urine Nitrite Urine Bilirubin Urine Urobilinogen Ur Leukocyte Esterase POC Ur Test Random Gentamicin COVID-19 Eval Order SARS-CoV-2, RNA, NAAT Blood Type Antibody Screen 06/25/20 06:07 WBC 8.99 RBC 3.60 L Hgb 10.3 L Hct 31.8 L MCV 88.3 MCH 28.6 MCHC 32.4 RDW Std Deviation 45.6 RDW Coeff of Sachi 14.0 Plt Count 183 MPV 11.3 H Immature Gran % (Auto) 0.1 Neut % (Auto) 73.0 Lymph % (Auto) 17.5 [place] % (Auto) 8.2 Eos % (Auto) 1.0 Baso % (Auto) 0.2 Neut # (Auto) 6.56 H Lymph # (Auto) 1.57 [place] # (Auto) 0.74 H Eos # (Auto) 0.09 Baso # (Auto) 0.02 Immature Gran # (Auto) 0.01 RBC Morphology PT INR APTT PTT Ratio Sodium Potassium Chloride Carbon Dioxide Anion Gap BUN Creatinine Est Cr Clr Drug Dosing Est GFR ( Amer) Est GFR (Non-Af Amer) BUN/Creatinine Ratio Glucose Lactate Calcium Total Bilirubin AST ALT Alkaline Phosphatase Total Protein Albumin Globulin Albumin/Globulin Ratio Lipase HCG, Qual Urine Color Urine Appearance Urine pH Ur Specific [place] Urine Protein Urine Glucose (UA) Urine Ketones Urine Blood Urine Nitrite Urine Bilirubin Urine Urobilinogen Ur Leukocyte Esterase POC Ur Test Random Gentamicin COVID-19 Eval Order SARS-CoV-2, RNA, NAAT Blood Type Antibody Screen
[2020-06-25 15:02] LABS: Chlamydia Trach RNA NOT DETECTED (NOT DETECTED); GC (Neis gonorrhoeae) RNA NOT DETECTED (NOT DETECTED); Trichomonas vaginalis RNA NOT DETECTED (NOT DETECTED)
[2020-06-25] MEDS: HYDROmorphone INJ 0.5 MG/0.5 ML SYR IV PRN (22:48)
[2020-06-26] MEDS: HYDROmorphone INJ 0.5 MG/0.5 ML SYR IV PRN ×2 (01:44→03:57)
[2020-06-26] MEDS: AMPICILLIN 2,000 MG in SODIUM CHLOR 0.9% AD-VAN 100 ML IV SCH ×2 (05:02→11:11)
[2020-06-26] MEDS: oxyCODONE/ACETAMINOPHEN 5mg/325mg TAB PO PRN ×2 (05:33→08:40)
[2020-06-26] MEDS: CLINDAMYCIN 900 MG in DEXTROSE 5% 50 ML IV SCH (05:45)
[2020-06-26 06:48] LABS: Basophils # (auto) 0.01 K/uL (0-0.2); Basophils % (auto) 0.1 %; Eosinophils # (auto) 0.14 K/uL (0-0.5); Eosinophils % (auto) 1.6 %; Hematocrit (blood only) 33.3 % (37-47); Hemoglobin 11.2 g/dL (12.0-16.0); Immature Granulocytes # (auto) 0.01 K/uL (0.00-0.02); Immature Granulocytes % (auto) 0.1 %; Lymphocytes # (auto) 2.16 K/uL (1.2-3.4); Lymphocytes % (auto) 25.1 %; Mean Corpuscular Hemoglobin 29.6 pg (25-34); Mean Corpuscular Hgb Conc 33.6 g/dL (32-36); Mean Corpuscular Volume 88.1 fL (80-100); Mean Platelet Volume 11.6 fL (7.4-10.4); Monocytes # (auto) 0.48 K/uL (0.11-0.59); Monocytes % (auto) 5.6 %; Neutrophils # (auto) 5.79 K/uL (1.4-6.5); Neutrophils % (auto) 67.5 %; Platelet Count 263 K/uL (130-400); RDW Coefficient of Variation 14.1 % (11.5-14.5); RDW Standard Deviation 45.8 fL (36.4-46.3); Red Blood Count 3.78 M/uL (4.2-5.4); White Blood Count 8.59 K/uL (4.8-10.8)
[2020-06-26] MEDS: ONDANSETRON INJ 2 MG/ML 2 ML VIAL IV PRN (07:39)
[2020-06-26] MEDS: GENTAMICIN SULFATE 350 MG in DEXTROSE 5% 100 ML IV SCH (08:02)
[2020-06-26] MEDS: IBUPROFEN 600 MG TAB PO PRN ×2 (08:41→13:11)
[2020-06-26] MEDS ORDERED: oxyCODONE/ACETAMINOPHEN 5mg/325mg TAB PO PRN (08:50)
[2020-06-26] MEDS ORDERED: oxyCODONE/ACETAMINOPHEN 5mg/325mg TAB PO ONE (09:00)
[2020-06-26] MEDS ORDERED: Nursing to Pharmacy Communication SCH ×2 (09:00→13:15)
[2020-06-26 09:41] LABS: Amphetamines+Metham, Urine Neg (Neg); Barbiturates, Urine Neg (Neg); Benzodiazepine, Urine Neg (Neg); Cocaine, Urine Neg (Neg); MDMA (Ecstacy), Urine Neg (Neg); Methadone, Urine Neg (Neg); Opiate, Urine Pos (Neg); Phencyclidine, Urine Neg (Neg)
--- NOTE | 2020-06-26 10:13 | Ultrasound Report ---
EXAMINATION: PELVIC ULTRASOUND (transabdominal and endovaginal scanning) CLINICAL HISTORY: Lower abdominal/pelvic pain. COMPARISON STUDY: 06/23/2020 FINDINGS: Following transabdominal scanning, endovaginal scanning was performed to further evaluate the bilater al adnexal lesions The uterus measured 9.6 x 3.7 x 4.8 cm.. The endometrial stripe measured 12 mm. The right ovary measured 5.6 x 4.1 x 4.2 cm. There is a complex right adnexal focus contiguous with t he ovary measuring 45 x 32 x 21 mm.. The left ovary measured 24 x 21 x 20 mm. There is a complex left ovarian cyst measuring 17 mm. There is equivocal visualization of the fallopian tubes. Hydrosalpinx cannot be excluded. There is no ultrasonographic evidence of ovarian torsion. It should be noted that ovarian torsion can be present with normal Doppler ultrasonographic findings. There was no evidence of pathologic free pelvic fluid. IMPRESSION: 1. No uterine abnormalities identified 2. No evidence of ovarian torsion 3. Persistent bilateral complex ovarian lesions possibly representing hemorrhagic cysts. As stated pr eviously, hydrosalpinx cannot be excluded. Clinical correlation advocated. A follow-up ultrasound in 8 weeks is again recommended. ACT 112: Negative or not required by law. Electronically signed by: Yon Abdi M.D. 06/26/2020 10:12 AM
[2020-06-26] MEDS: LACTATED RINGER'S 1,000 ML IV SCH (10:17)
[2020-06-26] MEDS ORDERED: IBUPROFEN 600 MG TAB PO PRN (13:30)
--- NOTE | 2020-06-26 14:00 | Gynecologic Progress Note ---
Date of Service June 26, 2020 Assessment & Plan (1) Pelvic pain: HD #4 Pt continues to report bilateral pelvic pain but is improved. now rates pain 3/10 as compared to 10/10 on admission Repeat sono shows no significant pain from admission WBC is remarkably improved and WNL pt is afebrile discussed sono with pt we discussed diagnostic laparoscopy in the presence of her unknown etiology. Pt is trying to get and that is why she was not on OCP despite a hx of ovarian cyst and endometriosis She is not therefore open to more surgeries or any oophorectomy. the presence of the bilateral pain makes torsion unlikely though not impossible. all of this is discussed with pt Pt wishes to be discharged home and will f/u with her [facility] at [place] Admission and Anticipated Discharge Date Admission Date: June 23, 2020 Review of Systems Review of Systems: All systems reviewed & are unremarkable except as noted in HPI & below Physical Exam Constitutional: WD/WN, vitals as above Eyes: PERRL, conjunctivae normal, anicteric sclerae ENMT: external ear and nose normal, oropharynx normal Neck: trachea midline, no thyromegaly Respiratory: normal respiratory effort, lungs clear to auscultation Cardiovascular: RRR, no murmur, no edema Chest (Breasts): normal inspection/palpation of breasts Gastrointestinal (Abdomen): normal bowel sounds, soft, nontender, no hepatosplenomegaly Musculoskeletal: no cyanosis or clubbing, extremities motor strength 5/5 Skin: + incision (Incision clean,dry and intact) Neurologic: patellar DTR's 2+ bilat, sensation intact Psychiatric: A+Ox3, euthymic affect Genitourinary: no vaginal lesions, no adnexal mass Lymphatic: no cervical or axillary lymphadenopathy Results & Data ([facility]) Vital Signs (Past 12 Hours) Vital Signs Temp Pulse Resp BP BP Pulse Ox 06/26/20 13:12 37.1 C 74 18 108/74 96 06/26/20 11:38 37.1 C 74 18 108/74 96 06/26/20 07:30 37.1 C 75 18 123/82 97 06/26/20 03:50 36.9 C 89 20 124/83 97
--- NOTE | 2020-06-27 04:17 | Discharge Summary (DS) ---
CHIEF COMPLAINT: Bilateral pelvic pain. HISTORY OF PRESENT ILLNESS: This is a 30-year-old G0, who presented to the Emergency Room on 06/23/2020 in acute pelvic pain radiating to the back. Pain was bilateral. Patient had history of endometriosis, menorrhagia and dysmenorrhea. She has also had a history of ovarian cyst. She was seen in the ER and evaluated and eventually admitted to [facility]. Differential diagnoses at time of admission were 1. Endometriosis. 2. Bilateral ovarian cysts. 3. Pelvic inflammatory disease. The patient had elevated white count of over 26. She was admitted and started on antibiotics, which were ampicillin, gentamicin and clindamycin. There was no fluid in the pelvis though dilated fallopian tube was identified with both ovaries appearing grossly normal. There was no significant ovarian cyst to be seen on ultrasound. The patient was treated for PID ____. During that time here in the hospital, her pain was managed with narcotics. Her pain scale was between 3 and 7. Her pain seemed to improve every time she received narcotics. Her white count has dramatically improved from 26 to 8 today. She had no fever during her time here in the hospital. Blood cultures and cervical cultures were performed. Blood culture was positive for gram positive and negative for anything else. Cervical cultures was positive for Gardnerella as well. Today patient had a repeat ultrasound which is unchanged from that of admission. She is being discharged home today and will follow up with her primary [facility] in [place]. PAST MEDICAL HISTORY: History of endometriosis and ovarian cyst. PAST SURGICAL HISTORY: History of ovarian cystectomy. SOCIAL HISTORY: The patient denies tobacco, drug or alcohol use. FAMILY HISTORY: Noncontributory. ALLERGIES: No known drug allergies. REVIEW OF SYSTEMS: Negative except as dictated in the HPI. PHYSICAL EXAMINATION: GENERAL: Well-developed, well-nourished white female in no acute distress. VITAL SIGNS: Today, blood pressure is 108/74, pulse 74, respirations 18, temperature 37.1. LABORATORY DATA: This morning, patient's hemoglobin is 11.2, hematocrit is 33.3. HEART: S1, S2, regular rhythm and rate. LUNGS: Clear to auscultation bilaterally. ABDOMEN: Nontender, nondistended, positive bowel sounds. OPERATION: Expected management with antibiotics and pain management. DISCHARGE DIAGNOSIS: Bilateral pelvic pain. PLAN ON DISCHARGE: The patient is discharged home in stable condition regarding activity, diet, followup appointment and medication.
[2020-06-28 05:53] LABS: Codeine Urine NEGATIVE ng/mL (<50); Hydrocodone Urine NEGATIVE ng/mL (<50); Hydromor Urine 161 ng/mL (<50); Morphine Urine NEGATIVE ng/mL (<50); Norhydrocodone Conf Ur NEGATIVE ng/mL (<50); Noroxycodone Urine 241 ng/mL (<50); Oxycodone Urine 190 ng/mL (<50); Oxymorph Urine 603 ng/mL (<50)
== END 2020-06-26 14:20 | disposition home or self-care (01) | DRG 761 ==
LOC: ED 01:37 → 4N 06:10
DX: N80.9 Endometriosis, unspecified